=== PATIENT | female | born 1960 | race Caucasian/White ===

== ENCOUNTER → 2019-06-17 07:59 | Outpatient (CLI) | payer BC, SELFPAY | PROVIDERS: PCP Family Medicine; Visit Provider Family Medicine | DX: I10 Essential (primary) hypertension (principal); E66.09 Other obesity due to excess calories; I20.8 Other forms of angina pectoris | CPT/HCPCS: 93017 ==

== ENCOUNTER → 2020-01-03 14:07 | Outpatient (POV) | payer BC, SELFPAY | PROVIDERS: PCP Dermatology; Visit Provider Dermatology | DX: Z00.00 Encounter for general adult medical examination without abnormal findings (principal) ==

== ENCOUNTER → 2020-06-11 09:57 | Outpatient (CLI) | payer BC, SELFPAY ==
--- NOTE | 2020-06-11 10:02 | MM_ITS ---
PROCEDURE: MM DIG SCREENING MAMM BI W/CAD Digital Breast Tomosynthesis Included CLINICAL INDICATION: SCREENING There is no personal or family history of breast cancer. There has been a previous biopsy left breast for benign disease. COMPARISON: DMSB DIG MAMM-SCREEN LOBO from 04/12/2015 DMSB DIG MAMM-SCREEN LOBO from 05/28/2016 TECHNIQUE: Standard CC and MLO images and 3D Tomosynthesis was obtained. R2 CAD reviewed. FINDINGS: Scattered diffuse fibroglandular densities are seen throughout both breasts. There is a biopsy clip left breast along with a couple of benign-appearing calcifications. There are couple of microcalcifications associated irregular density upper-outer quadrant right breast highlighted by CAD but only definitely seen on the cc view. Recommend the patient return for spot compression magnification views and possibly ultrasound this proved to be a true lesion. There is a stable nodular density upper-outer quadrant right breast likely intramammary node. IMPRESSION: Fibrofatty parenchyma with possible new microcalcifications right breast BI-RAD Category: 0 Need Additional Imaging Evaluation FOLLOW-UP: IMM Immediate Follow-up Recommended (A letter has been sent to the patient regarding results of the study.) Dictated by: Dr. Anuj Kenyon MD 06/14/2020 08:[address] Anuj Kenyon MD in [place] 06/14/2020 08:33
== END ==
PROVIDERS: PCP Family Medicine; Visit Provider Nurse Practitioner
DX: Z12.31 Encounter for screening mammogram for malignant neoplasm of breast (principal)
CPT/HCPCS: 77063; 77067

== ENCOUNTER → 2020-07-10 14:17 | Outpatient (CLI) | payer BC, SELFPAY ==
--- NOTE | 2020-07-10 14:23 | MM_ITS ---
PROCEDURE: MM DIG MAMM DX UNILAT RT CAD Digital Breast Tomosynthesis Included CLINICAL INDICATION: ABN MAMM Calcifications highlighted by CAD COMPARISON: MG DMSB DIG MAMM-SCREEN LOBO from 05/28/2016 MG DMSB DIG MAMM-SCREEN LOBO W/CAD from 06/09/2017 MG MM DIG SCREENING MAMM BI W/CAD from 06/11/2020 TECHNIQUE: Standard CC and MLO images and 3D Tomosynthesis was obtained. R2 CAD reviewed. FINDINGS: Spot compression magnification views show a small cluster of round microcalcifications with smooth borders and no associated abnormal density. These have a benign appearance. No other abnormality is seen. IMPRESSION: Small cluster of benign-appearing microcalcifications as noted and recommend the patient continue with yearly mammography BI-RAD Category: 2 Benign Finding(s) FOLLOW-UP: 1YR 1 Year Follow-up (A letter has been sent to the patient regarding results of the study.) Dictated by: Dr. Anuj Kenyon MD 07/17/2020 09:28 Dr. Anuj Kenyon MD in [place] 07/17/2020 09:28
--- NOTE | 2020-07-10 14:23 | US_ITS ---
PROCEDURE: US BREAST RT COMPLETE CLINICAL INDICATION: ABN MAMM possible new microcalcifications COMPARISON: MG MM DIG MAMM DX UNILAT RT CAD from 07/10/2020 FINDINGS: Ultrasound survey of the breast in all 4 quadrants shows rather homogeneous echogenicity with no suspicious cystic or solid lesions seen and no findings to suggest architectural distortion. There is a normal appearing node in the axilla. IMPRESSION: Negative ultrasound right breast and suggest patient continue with yearly screening mammography Dictated by: Dr. Anuj Kenyon MD 07/17/2020 09:32 Dr. Anuj Kenyon MD in [place] 07/17/2020 09:32
== END ==
PROVIDERS: PCP Family Medicine; Visit Provider Nurse Practitioner
DX: R92.8 Other abnormal and inconclusive findings on diagnostic imaging of breast (principal)
CPT/HCPCS: 76641; 77061; 77065; G0279

== ENCOUNTER → 2021-07-16 10:05 | Outpatient (CLI) | payer BC, SELFPAY ==
--- NOTE | 2021-07-16 10:07 | MM_ITS ---
PROCEDURE: MM DIG SCREENING MAMM BI W/CAD Digital Breast Tomosynthesis Included CLINICAL INDICATION: SCREENING COMPARISON: MG DMSB DIG MAMM-SCREEN LOBO from 04/12/2015 MG DMSB DIG MAMM-SCREEN LOBO from 05/28/2016 MG DMSB DIG MAMM-SCREEN LOBO W/CAD from 06/09/2017 MG MM DIG SCREENING MAMM BI W/CAD from 06/11/2020 MG MM DIG MAMM DX UNILAT RT CAD from 07/10/2020 TECHNIQUE: Standard CC and MLO images and 3D Tomosynthesis was obtained. R2 CAD reviewed. FINDINGS: The breasts are almost entirely fatty. Right breast: Benign-appearing nodular density upper outer right breast which may represent a small lymph node at approximately 8 mm. Small cluster of calcifications in the outer aspect of the right breast. These may have slightly increased in number compared to the previous exam. Spot compression Mag views once again suggested with straight mL view. Asymmetric density is present in the deep central aspect of the right breast possibly due to fibroglandular tissue. Spot compression views suggested. The left breast has an unremarkable appearance. A clip is present in the upper aspect of the left breast at 1 o'clock. There benign-appearing calcifications on the left. IMPRESSION: Additional imaging suggested of the right breast of the slightly increasing calcifications and asymmetric density. Unremarkable left breast BI-RAD Category: 0 Need Additional Imaging Evaluation FOLLOW-UP: IMM Immediate Follow-up Recommended (A letter has been sent to the patient regarding results of the study.) Dictated by: Nash Baires MD 07/29/2021 10:41 Nash Baires MD in [place] 07/29/2021 10:41
== END ==
PROVIDERS: PCP Family Medicine; Visit Provider Family Medicine
DX: Z12.31 Encounter for screening mammogram for malignant neoplasm of breast (principal)
CPT/HCPCS: 77063; 77067

== ENCOUNTER → 2021-07-25 15:02 | Outpatient (CLI) | payer BC, SELFPAY | PROVIDERS: PCP Family Medicine; Visit Provider Family Medicine | DX: R92.8 Other abnormal and inconclusive findings on diagnostic imaging of breast (principal) ==

== ENCOUNTER → 2021-08-13 14:10 | Outpatient (CLI) | payer BC, SELFPAY ==
--- NOTE | 2021-08-13 14:13 | MM_ITS ---
PROCEDURE: MM DIG MAMM DX UNILAT RT CAD Digital Breast Tomosynthesis Included CLINICAL INDICATION: ABN MAMM COMPARISON: MG DMSB DIG MAMM-SCREEN LOBO W/CAD from 06/09/2017 MG MM DIG SCREENING MAMM BI W/CAD from 06/11/2020 US US BREAST RT COMPLETE from 07/10/2020 MG MM DIG MAMM DX UNILAT RT CAD from 07/10/2020 MG MM DIG SCREENING MAMM BI W/CAD from 07/16/2021 US US BREAST RT COMPLETE from 08/13/2021 TECHNIQUE: Diagnostic mammogram and right breast ultrasound. FINDINGS: The asymmetry in the posterior aspect of the right breast is approximately 15 cm deep to the nipple. This region appears to compress out as fibroglandular tissue on the focal spot view. The cluster of calcifications in the 9 o'clock region of the right breast do appear to have increased in number with some pleomorphism. Biopsy suggested Right breast ultrasound complete with axilla: No suspicious solid nodules evident. No cyst identified. IMPRESSION: Slight increase in the calcifications in the lateral right breast central 1/3 at 9 o'clock. Stereotactic biopsy suggested. The nodular density in the deep posterior central right breast appears to compress out as fibroglandular tissue. BI-RAD Category: 4 Suspicious Abnormality-Biopsy Considered FOLLOW-UP: BIO Biopsy Recommended (A letter has been sent to the patient regarding results of the study.) Dictated by: Nash Baires MD 08/21/2021 12:10 Nash Baires MD in [place] 08/21/2021 12:10
== END ==
PROVIDERS: PCP Family Medicine; Visit Provider Family Medicine
DX: R92.8 Other abnormal and inconclusive findings on diagnostic imaging of breast (principal)
CPT/HCPCS: 76641; 77061; 77065; G0279

== ENCOUNTER → 2021-09-03 13:03 | Outpatient (CLI) | payer BC, SELFPAY ==
--- NOTE | 2021-09-03 13:09 | MM_ITS ---
PROCEDURE: MM STEREOTACTIC LOC RT MM CLIP PLACEMENT MM SURGICAL SPECIMEN CLINICAL INDICATION: BREAST CALCIFICATIONS Suspicious calcifications at 9 o'clock TECHNIQUE: Informed consent was performed and time-out procedure performed. The patient was given 1 mg of Xanax, Lortab 5 mg, and analgesia and minor sedation. The patient was placed on the stereotactic table and the 9 o'clock calcifications right breast were localized in the most appropriate projection. The breast was prepped in the routine manner, with sterile prep and the overlying skin anesthetized. A 3 to 4 mm skin incision was performed and the 8 gauge sorus vacuum-assisted core biopsy needle was advanced to the region of the calcification. Pre- and post fire images were obtained. After adequate positioning relative to the calcifications was ensured, multiple biopsies were obtained in the region of the calcifications specifically. The core biopsies obtained were sent for specimen mammography. After the calcifications were indeed identified on the specimen mammogram, the procedure was terminated. The patient tolerated the procedure well without complications. Specimen was sent for pathologic analysis. A tiny titanium nonferromagnetic MicroMark was positioned through the mammotome needle into the biopsy site. Pathology: Focal stromal fibrosis/hilum is a izquierdo with associated benign microcalcifications. No atypical ductal hyperplasia in situ or invasive carcinoma IMPRESSION: 1. Successful stereotactic vacuum-assisted core biopsy of the right breast 9 o'clock calcifications. 2. Successful placement of a titanium metal MicroMark. 3. Pathologic analysis shows benign findings.. 4. No noted complications. SPECIMEN RADIOGRAPH: The mammographically evident calcifications from the prior study are currently evident within the Alfredo dish and within the specimens obtained during mammotome procedure. This is considered an adequate specimen and the procedure was terminated. IMPRESSION: Successful removal of described breast calcifications. BREAST MAMMOGRAM: Post clip placement images Compared to the prior study, the previously noted calcification have been removed. A small MicroMark clip was inserted into the region of the calcifications. There is evidence of soft tissue changes in the region of the biopsy was soft tissue gas and edema. 5. Adequate placement of the MicroMark clip postbiopsy. 6. Postbiopsy changes within the breast. Dictated by: Nash Baires MD 09/06/2021 19:26 Nash Baires MD in [place] 09/06/2021 19:26
== END ==
PROVIDERS: PCP Family Medicine; Visit Provider Family Medicine
DX: R92.1 Mammographic calcification found on diagnostic imaging of breast (principal)
CPT/HCPCS: 19081; 76098; 77065

== ENCOUNTER 2022-07-15 17:38 | Emergency (ER) | payer BC, SELFPAY ==
[2022-07-15 18:00] VITALS: BP 151/75; PULSE 67; RESP 17; TEMP 36.7; O2SAT 98; BMI 32.8
--- NOTE | 2022-07-15 18:17 | EXP.UTC ---
Discharge Plan Referrals Follow up/Referrals: Chapin Lan MD [Primary Care Provider] - See instructions Discharge ED Provider: Adis Espinoza [facility] [place] General Stated complaint: nausea, poss HBP Mode of Arrival: Ambulatory Source of Information: Patient Limitations: No Limitations Time Seen by Provider: 07/15/22 18:10 Description of Symptoms (Recalled from Triage Doc. by RN): PATIENT C/O FATIGUE AND HEADACHE SINCE THIS MORNING HEENT Symptoms (Recalled from RN notes): Yes Resp Symptoms (Recalled from RN notes): No Skin Symptoms (Recalled from RN notes): No MS Symptoms (Recalled from RN notes): No Functional Status (Recalled from RN notes): WNL History of Present Illness Provider Complaint: Patient states that she hasnt felt well on and off for about 2 weeks States that on Thursday she tried to give blood and they wouldnt let her told her that her heart was missing too many beats States that she has watched her blood pressure all weekend and on Thursday it said her heart rate was in the 40's and then was 49 States that yesterday she felt good and helped her do some work but today States that she has continued to not feel well on and off and today she was feeling fatigued, had a little headache and just dont feel right so she came in Related Data Allergies Allergy/AdvReac Type Severity Reaction Status Date / Time No Known Allergies Allergy Verified 07/15/22 18:12 Worker's Comp Is this a Worker's Comp case?: No [facility] Medical History (Updated 07/15/22 @ 18:12 by Cesia Gallardo RN) Hypertension Social History (Updated 07/15/22 @ 18:12 by Cesia Gallardo RN) Smoking Status: Unknown if ever smoked alcohol intake: never current occupational status: other ROS Obtained: Yes All systems reviewed & no additional complaints except as documented and Yes Systems reviewed as appropriate & no additional complaints except as documented Constitutional Constitutional: Reports system reviewed and no additional complaints, except as documented, Reports as per HPI, Reports fatigue and Reports headache(s) ENT Ears, Nose, Mouth, and Throat: Reports system reviewed and no additional complaints, except as documented, Reports as per HPI and Reports headache(s) Cardiovascular Cardiovascular: Reports system reviewed and no additional complaints, except as documented, Reports as per HPI and Denies chest pain Respiratory Respiratory: Reports system reviewed and no additional complaints, except as documented and Reports as per HPI Neurologic Neurologic: Reports headache(s) Endocrine Endocrine: Reports fatigue Allergic/Immunologic Comments: Patient reports hasnt felt right on and off for 2 weeks Physical Exam General General appearance: alert and in no apparent distress Respiratory Respiratory exam: Present normal lung sounds bilaterally; Absent respiratory distress Cardiovascular Cardiovascular exam: Present irregular rhythm Neurological Exam Neurological exam: Present alert and oriented X3 Medical Decision Making Hi Inquiry Pt receiving controlled substance: No Hi was queried for this patient: No Vital Signs: 07/15/22 18:00 Temperature 98.1 F Temperature Source Oral Pulse Rate [Left Brachial] 67 Respiratory Rate 17 Blood Pressure [Left Arm] 151/75 H Blood Pressure Mean [Left Arm] 100 Blood Pressure Source [Left Arm] Automatic Cuff Blood Pressure Position [Left Arm] Sitting 02 Sat by Pulse Oximetry 98 Oxygen Delivery Method Room Air Medical Decision Narrative: Patient denies hx of irregular HR State states that for the last 2 weeks she has just not felt right States that she has been having fatigue and headaches and just not felt well States that they wouldnt let her donate blood over the weekend because they said her heart was missing too many beats states that he blood pressure has been up Due to patient symptoms and upon examination patient HR appeared irregular discussed with donal
[2022-07-15 18:20] VITALS: BP 133/87; PULSE 63; RESP 18; TEMP 36.8; O2SAT 100; BMI 34.8
[2022-07-15 18:29] VITALS: BP 164/72; PULSE 65; O2SAT 100
--- NOTE | 2022-07-15 18:35 | HMH.EDGENADL ---
Discharge Plan Disposition Patient Disposition: Home, Self-Care Condition: Good Chief Complaint: Arrhythmia/Palpitations Referrals Follow up/Referrals: Chapin Lan MD [Primary Care Provider] - See instructions Clayton Jovel MD [Staff Physician] - See instructions (See tomorrow in the office at 10:30 AM) Activity Restrictions/Add. Instructions Additional Instructions/Restrictions: See Dr. Jovel in his office tomorrow at 10:30 AM. Clinical Impressions Clinical Impression: Frequent unifocal premature ventricular contractions Discharge ED Provider: Adis Espinoza General Adult HPI General Chief complaint: Arrhythmia/Palpitations Stated complaint: nausea, poss HBP Time Seen by Provider: 07/15/22 18:50 Mode of Arrival: Ambulatory Source of Information: Patient Limitations: No Limitations Description of Symptoms (Recalled from ER Triage Doc. by RN): PATIENT C/O FATIGUE AND HEADACHE SINCE THIS MORNING History of Present Illness HPI narrative: The patient is sent from the urgent treatment center. She says that she has had intermittent feelings of fatigue for the past couple of weeks. No chest pain. Occasionally feels like she has to take a deep gasping breath, but otherwise no shortness of breath. No palpitations. She says that she tried to donate blood on Thursday but was told she could not because her heart was skipping too many beats. She says that she checked her blood pressure a couple of times in the past couple of days and her blood pressure was good, 120s over 60s, but both times her heart rate registered in the 40s. This worried her and she decided to come to the emergency department. She has a prior history of mitral valve prolapse and hypertension. She has seen Dr. Jovel 12 years ago, but not since. She is not on any new medications. She says that she takes Tenormin and lisinopril/hctz for blood pressure. She has never been a smoker. No other chronic medical problems. Related Data Allergies Allergy/AdvReac Type Severity Reaction Status Date / Time No Known Allergies Allergy Verified 07/15/22 18:12 [facility] Medical History (Updated 07/15/22 @ 20:30 by Adis Espinoza MD) Hypertension Social History (Updated 07/15/22 @ 18:28 by Estefanía Yancey APRN) Smoking Status: Unknown if ever smoked alcohol intake: never current occupational status: other Travel in the last 8 weeks: None ROS Obtained: Yes Systems reviewed as appropriate & no additional complaints except as documented Constitutional Constitutional: Denies fever(s) ENT Ears, Nose, Mouth, and Throat: Denies nasal discharge and Denies sore throat Cardiovascular Cardiovascular: Denies chest pain and Denies palpitations Respiratory Respiratory: Reports as per HPI Gastrointestinal Gastrointestingal: Denies abdominal pain, diarrhea or vomiting Endocrine Endocrine: Denies palpitations Physical Exam General General appearance: alert and in no apparent distress Head Head exam: atraumatic and normocephalic Eye Eye exam: Present normal appearance and EOMI ENT ENT exam: Present mucous membranes moist Neck Neck exam: Present normal inspection and trachea midline; Absent lymphadenopathy or thyromegaly Chest Chest inspection: Present normal inspection and symmetric chest wall rise Respiratory Respiratory exam: Present normal lung sounds bilaterally; Absent respiratory distress Cardiovascular Cardiovascular exam: Present regular rate, irregular rhythm (Frequent extrasystoles) and normal heart sounds Abdominal Exam Abdominal exam: Present soft; Absent distention, tenderness, guarding, rebound or rigidity Extremities Exam Extremities exam: Present normal inspection; Absent edema or calf tenderness Neurological Exam Neurological exam: Present alert and oriented X3 Psychiatric Psychiatric exam: Present normal affect and normal mood Skin Skin exam: Present warm and dry Medical Decision Making Hi Inquiry Pt receiving c
--- NOTE | 2022-07-15 18:56 | PC.NURSE ---
1855 ED MD AT BEDSIDE TO EVALUATE PT
[2022-07-15 19:02] LABS: Basophils # 0.1 K/mm3 (0-0.2); Basophils % 1.1 % (0.1-2.0); Eosinophils # 0.2 K/mm3 (0.0-0.4); Eosinophils % 2.8 % (0.1-12.0); Hematocrit 44.1 % (37.0-47.0); Hemoglobin 14.1 g/dL (12.2-16.2); Lymphocytes # 2.5 K/mm3 (0.7-4.5); Lymphocytes % 42.9 % (10-50); Mean Corpuscular Hemoglobin 30.1 pg (27.0-31.2); Mean Corpuscular Volume 93.9 fl (81-99); Mean Platelet Volume 7.6 fl (7.4-10.4); Monocytes # 0.4 K/mm3 (0.1-1.0); Monocytes % 6.5 % (1.7-9.3); Neutrophils # 2.8 K/mm3 (1.8-7.8); Neutrophils % 46.7 % (37.0-80.0); Platelet Count 267 K/mm3 (142-424); Red Blood Count 4.69 M/mm3 (4.20-5.40); Red Cell Distribution Width 13.3 % (11.5-17.5); White Blood Count 5.9 K/mm3 (4.8-10.8)
[2022-07-15 19:18] LABS: Alanine Aminotransferase 47 U/L (12-78); Albumin Level 4.4 g/dl (3.5-5.0); Albumin/Globulin Ratio 1.6 (1.1-1.8); Alkaline Phosphatase 117 U/L (38-126); Anion Gap 10.1 mEq/L (5-15); Aspartate Amino Transferase 36 U/L (14-36); Bilirubin,Total 0.9 mg/dl (0.2-1.3); Blood Urea Nitrogen 19 mg/dl (7-17); Calcium 9.9 mg/dl (8.4-10.2); Carbon Dioxide 27 mmol/L (22.0-30.0); Chloride 107 mmol/L (98-107); Creatinine Clearance Estimated 88 mL/min (50-200); Estimated Glomerular Filt Rate 57 ml/min (>60); GFR (African American) 69 ML/MIN (>60); Globulin 2.8 g/dL (1.3-3.2); Glucose 125 mg/dl (74-100); Potassium 4.1 mmoL/L (3.5-5.1); Sodium 140 mmol/L (136-145); Total Protein,Serum 7.2 g/dl (6.3-8.2)
[2022-07-15 19:30] LABS: Magnesium 1.9 mg/dl (1.6-2.3)
[2022-07-15 19:30] LABS: Troponin I < 0.01 ng/ml (0.00-0.034)
[2022-07-15 19:47] LABS: Free Thyroxine Index 2.8 ug/dL (5.93-13.13); T4 (Thyroxine) 8.9 ug/dl (5.53-11.0); Triiodothryronine (T3) Uptake 31 % (23.5-40.5)
[2022-07-15 20:36] VITALS: BP 145/87; PULSE 64; RESP 18; TEMP 36.8; O2SAT 98
[2022-07-15 22:07] LABS: Thyroid Stimulating Hormone 2.37 uIU/mL (0.465-4.68)
--- NOTE | 2022-07-16 18:57 | ECG_ITS ---
APPROVED REPORT Exam: Resting ECG HR:60 bpm ECG Measurements Heart Rate 60 AXES IA 192 P 71 QRSd 90 QRS 63 QT 433 T 49 QTc 433 Conclusion SINUS RHYTHM WITH OCCASIONAL VENTRICULAR PREMATURE COMPLEXES BORDERLINE ECG UNCONFIRMED REPORT Electronically signed by : Chapin Paulson MD 07/17/2022 11:24:12
== END 2022-07-15 20:37 | disposition home or self-care (01) ==
LOC: UTC 17:42 → ER 18:20
PROVIDERS: Emergency Provider Emergency Medicine; PCP Family Medicine
DX: I49.3 Ventricular premature depolarization (principal); Z79.899 Other long term (current) drug therapy
CPT/HCPCS: 80053; 83735; 84436; 84443; 84479; 84484; 85025; 93005; 99283

== ENCOUNTER → 2022-07-16 15:55 | Outpatient (CLI) | payer BC, SELFPAY | PROVIDERS: PCP Family Medicine; Visit Provider Physician Assistant | DX: R94.31 Abnormal electrocardiogram [ECG] [EKG] (principal); I10 Essential (primary) hypertension; I49.3 Ventricular premature depolarization | CPT/HCPCS: 93225; 93226 ==

== ENCOUNTER → 2022-07-18 14:27 | Outpatient (CLI) | payer BC, SELFPAY ==
--- NOTE | 2022-07-18 14:29 | CA_ITS ---
APPROVED REPORT EXAM: Comprehensive 2D, Doppler, and color-flow Echocardiogram Mine Safety Director: Kiah Gaffney RT(R) Ht: 5 ft 4 in Wt: 200lbs BSA: 1.96 BP: 152/83 mmHg Indications: HTN, PVC's, abn EKG. 2D Dimensions LVOT 1.99 cm (M/F) 1.5-2.5 LVEF (Bailey's) 55.30 % F: 54 - 74 LV Volume 84.20 mL F: 46 - 106 LV Volume Index 43.17 mL/m2 F: 29 - 61 LA Volume 13.70 mL LA Volume Index 7.02 mL/m2 (M/F) 16-34 M-Mode Dimensions RVDd 2.17 cm (0.9-2.6) LA Diam 3.30 cm (1.9-4.0) LVDd 4.84 cm (3.5-5.7) Ao Diam 2.55 cm (2.0-3.7) LVDs 3.59 cm (3.5-5.7) IVSd 0.61 cm (0.6-1.1) PWd 0.57 cm (0.6-1.1) EF (Teich) 50.60% FS 25.80% EDV (Teich) 109.60 mL ESV (Teich) 54.10 mL LV Diastology E Decel Time 263.00 (160-240 msec) E/A Ratio 0.98 MED E' 7.90 (< 7 cm/sec) E'/MED E' Ratio 9.23 (>14) LAT E' 11.20 (<10 cm/sec) E/LAT E' Ratio 6.51 (>14) Mitral Valve MV A Velocity 75.00 (40-130 cm/s) E/A Ratio 0.98 MV Decel. Time 263.00 (160-240 ms) Tricuspid Valve TR P. Velocity 202.00 cm/s RAP Estimate 10.00 mmHg RVSP 26.40 mmHg Left Ventricle Left atrium is normal size left ventricle is normal size there is no concentric left ventricular hypertrophy, estimated ejection fraction 55% with no regional wall motion abnormality diastolic parameters are within normal range. Right Ventricle Right atrium and right ventricle are normal size and contractility. Aortic Valve Aortic valve is minimally thickened and fibrosed there is no aortic stenosis or aortic insufficiency. Mitral Valve Mitral valve is grossly normal, there is trace mitral regurgitation. Tricuspid Valve Tricuspid valve grossly normal, there is trace tricuspid regurgitation, tricuspid regurgitation jet velocity is inadequate for calculation of the right ventricular systolic pressure. Pulmonic Valve Pulmonic valve is poorly visualized. Great Vessels Aortic root is normal size. Inferior vena cava is poorly visualized. Pericardium No significant pericardial effusion noted. Conclusion 1. Normal left ventricular size, preserved left ventricular systolic function, estimated ejection fraction 55% with no regional wall motion abnormality, diastolic parameters are within normal range. 2. Trace mitral and tricuspid regurgitation. 3. No significant pericardial effusion. 4. Inferior vena cava is poorly visualized. Electronically signed by : Walter Carr MD 07/20/2022 17:21:57
== END ==
PROVIDERS: PCP Family Medicine; Visit Provider Internal Medicine
DX: R94.31 Abnormal electrocardiogram [ECG] [EKG] (principal); I49.3 Ventricular premature depolarization; I10 Essential (primary) hypertension
CPT/HCPCS: 93306

== ENCOUNTER → 2022-07-29 11:03 | Outpatient (CLI) | payer BC, SELFPAY ==
--- NOTE | 2022-07-29 11:04 | NM_ITS ---
APPROVED REPORT Exam: Nuclear Stress Test Indication: Abnormal EKG, Fatigue, HTN, Family history Patient Location: Outpatient Stress Tech: Giselle Shen [place] Tech:Holly Cramer, ARRT, RT (R)(N) Ht: 5 ft 4 in Wt: 200 lbs Bra Size: 40DD HR: 66 bpm BP: 137/89 mmHg BSA: 1.96 m2 TID: 1.14 BMI: 34.3 History: Abnormal EKG, Fatigue, HTN, Family history Procedure: Patient exercised on Paddy protocol 8:15 minutes and sec, resting heart rate 66 bpm, resting blood pressure 137/89 mmHg, with exercise maximum heart rate achived was 123 bpm which is 76 % of the maximum predicted heart rate and blood pressure was 194/72 mmHg. Test was stopped due to SOB. Patient denied any complaint of chest pain. Patient has good exercise capacity, achieved 10.1 METs of workload on treadmill, the blood pressure response to exercise was Adequate. Electrocardiogram Resting electrocardiogram shows sinus rhythm, with exercise there is less than 1.[address] segment depression noted from the baseline EKG, the EKG portion of the exercise Myoview was nondiagnostic as patient did not achieve the target heart rate. Cardiac Stress and Resting SPECT Images: Cardiac Stress and Resting SPECT images were obtained using technetium 99m Myoview 32.5 mCi stress and 10.44 mCi at rest. Gated SPECT for analysis of segmental wall motion and calculation of the ejection fraction was present. Prone images were also obtained. Cardiac stress and rest SPECT may show uniform myocardial activity without segmental perfusion abnormality, computer derived ejection fraction is 65% with no regional wall motion abnormality, right ventricle is normal size and contractility. Conclusion: 1. The EKG portion of the exercise Myoview was nondiagnostic as patient did not achieve the target heart rate, patient has good exercise capacity achieved 10.1 METs of workload on treadmill, the blood pressure response to exercise was adequate, there was no exercise-induced chest discomfort. 2. No scintigraphic evidence of reversible ischemia seen at this level of exercise, computer derived ejection fraction is 65% with no regional wall motion abnormality, right ventricle is normal size and contractility. Electronically signed by : Walter Carr MD 07/30/2022 05:52:43
--- NOTE | 2022-07-29 12:45 | HMH.ITSHM ---
Current Home Medications as stated by this patient Shelley Mccracken or community health representative. []LISINOPRIL ATENOLOL
--- NOTE | 2022-07-29 13:34 | CA_ITS ---
APPROVED REPORT Exam: Exercise Treadmill Technologist: Giselle Montanez, Ht: 5 ft 4 in Wt: 201 lbs BSA: 1.96 m2 HR: 62 bpm BP: 147/96 mmHg Indications: PVCs Medical History Medications: Atenolol,,,,, Lisinopril-HCTZ,,,,, Stress Test Details Test: Paddy HR Resting HR: 66 bpm Max Heart Rate (APMHR): 161.277074 bpm Max HR Achieved: 123 bpm Target HR (85% APMHR): 136.182562 bpm % of APMHR: 76.40 Recovery HR: 76 bpm BP Resting BP: 137/89 mmHg Max BP: 194/72 mmHg Recovery BP: 135.0/63.0 mmHg ECG Resting ECG: NSR, frequent uniform PVCs Clinical Exercise duration: 08:15 min Highest Stage Achieved: III Exercise capacity: 10.1 METs Stress ECG Conclusion Exercised 8:15 into stage III of Paddy Protocol. Max HR: 123 % of PM: 76% Max BP: 194/72 METs: 10.1 Test stopped due to: SOA Symptoms: SOA. No CP. Arrhythmias/Ectopy: Frequent unifocal PVCs, sometimes in a bigeminal pattern/ Frequency of PVCs decreases at higher heart rates. ST-T Changes: 0.5 to 1mm of horizontal [address] depression inferiorly & anterolaterally, most notable in recovery. Conclusion: Equivocal EKG changes to the HR achieved (76% of PM). Blunted HR response on beta-vicky. Myoview images reported separately. Test Summary RECOVERY 07:48 0.0 0.0 81 . 135/ 63 . . REST . . . . . . . Standing REST 04:13 0.0 0.0 66 . 137/ 89 . . Stage 1 01:00 10.0 1.7 78 . . . . Stage 1 02:00 10.0 1.7 94 . . . . Stage 1 03:00 10.0 1.7 96 . 174/ 74 . . Stage 2 01:00 12.0 2.5 105 . . . . Stage 2 02:00 12.0 2.5 110 . . . . Stage 2 03:00 12.0 2.5 109 . 194/ 72 . . Stage 3 01:00 14.0 3.4 115 . . . . Stage 3 02:00 14.0 3.4 120 . . . . Stage 3 02:15 14.0 3.4 121 . . . Stop exercise at 08:15 RECOVERY 01:00 0.0 0.0 112 . . . . RECOVERY 02:00 0.0 0.0 95 . . . . RECOVERY 03:00 0.0 0.0 87 . 182/ 73 . . RECOVERY 04:00 0.0 0.0 84 . 172/ 67 . . RECOVERY 05:00 0.0 0.0 80 . 172/ 67 . . RECOVERY 06:00 0.0 0.0 80 . 172/ 67 . . RECOVERY 07:00 0.0 0.0 77 . 112/ 64 . . RECOVERY 07:48 0.0 0.0 81 . 135/ 63 . . Electronically signed by : Walter Carr MD 07/30/2022 05:49:50
== END ==
PROVIDERS: PCP Family Medicine; Visit Provider Nurse Practitioner Family
DX: R94.31 Abnormal electrocardiogram [ECG] [EKG] (principal); I49.3 Ventricular premature depolarization; I10 Essential (primary) hypertension; R53.83 Other fatigue; Z82.49 Family history of ischemic heart disease and other diseases of the circulatory system
CPT/HCPCS: 78452; 93017; A9502

== ENCOUNTER → 2022-08-25 09:01 | Outpatient (CLI) | payer BC, SELFPAY ==
[2022-08-25 11:31] LABS: Basophils # 0.1 K/mm3 (0-0.2); Basophils % 1.2 % (0.1-2.0); Eosinophils # 0.1 K/mm3 (0.0-0.4); Eosinophils % 2.2 % (0.1-12.0); Hematocrit 45.2 % (37.0-47.0); Hemoglobin 14.5 g/dL (12.2-16.2); Lymphocytes # 2.3 K/mm3 (0.7-4.5); Lymphocytes % 43.9 % (10-50); Mean Corpuscular HGB Conc 32.1 g/dL (31.8-35.4); Mean Corpuscular Hemoglobin 30.4 pg (27.0-31.2); Mean Corpuscular Volume 94.6 fl (81-99); Mean Platelet Volume 8.7 fl (7.4-10.4); Monocytes # 0.3 K/mm3 (0.1-1.0); Monocytes % 6.5 % (1.7-9.3); Neutrophils # 2.4 K/mm3 (1.8-7.8); Neutrophils % 46.2 % (37.0-80.0); Platelet Count 262 K/mm3 (142-424); Red Blood Count 4.78 M/mm3 (4.20-5.40); Red Cell Distribution Width 13.3 % (11.5-17.5); White Blood Count 5.2 K/mm3 (4.8-10.8)
[2022-08-25 11:58] LABS: Chloride 106 mmol/L (98-107); Potassium 4.4 mmoL/L (3.5-5.1); Sodium 140 mmol/L (136-145)
[2022-08-25 12:01] LABS: Alanine Aminotransferase 38 U/L (12-78); Albumin Level 4.5 g/dl (3.5-5.0); Alkaline Phosphatase 88 U/L (38-126); Anion Gap 16.4 mEq/L (5-15); Aspartate Amino Transferase 37 U/L (14-36); Bilirubin,Direct 0.1 mg/dl (0.0-0.4); Bilirubin,Indirect 0.9 mg/dL (0.0-0.9); Bilirubin,Unconjugated 0.9 mg/dL (0.0-1.1); Blood Urea Nitrogen 20 mg/dl (7-17); Calcium 9.5 mg/dl (8.4-10.2); Carbon Dioxide 22 mmol/L (22.0-30.0); Cholesterol 204 mg/dl (140-200); Estimated Glomerular Filt Rate 57 ml/min (>60); GFR (African American) 69 ML/MIN (>60); Glucose 109 mg/dl (74-100); Triglycerides 104 mg/dl (30-150); VLDL Cholesterol 21 mg/dL (0-40)
[2022-08-25 12:02] LABS: HDL Cholesterol 68 mg/dl (40-60)
== END ==
PROVIDERS: PCP Family Medicine; Visit Provider Physician Assistant
DX: R42 Dizziness and giddiness (principal); I49.3 Ventricular premature depolarization; R00.1 Bradycardia, unspecified; I10 Essential (primary) hypertension; R53.83 Other fatigue; Z82.49 Family history of ischemic heart disease and other diseases of the circulatory system; I63.9 Cerebral infarction, unspecified
CPT/HCPCS: 36415; 80048; 80061; 80076; 85025

== ENCOUNTER 2022-08-26 08:18 | Day surgery (SDC) | payer BC, SELFPAY ==
[2022-08-26] VITALS (10 sets, daily range): BP systolic 100–172; BP diastolic 57–90; PULSE 49–69; RESP 16–18; O2SAT 96–99; BMI 34.3
--- NOTE | 2022-08-26 07:06 | IR_ITS ---
APPROVED REPORT Patient Location: Outpatient Spotter: TOMÁS Rader RT (R) PROCEDURES Left heart catheterization Left ventriculogram Selective coronary angiogram INDICATION Recalcitrant angina pectoris Informed consent was obtained prior to the procedure. COMPLICATIONS None Estimated Blood Loss: Less than 10 mls TECHNIQUE One percent lidocaine used to anesthetize the right anterior aspect of the wrist. The right radial artery was accessed via the Seldinger technique. A 6 [place] Helen[place] sheath was placed in the right radial artery. 2.5 mg of verapamil, 800 mcg of nitroglycerin, 1mg Lidocaine and 5000 U Heparin were given through the arterial sheath. The papa catheter was also used to perform left heart catheterization, left ventriculogram and selective coronary angiogram. At the end of the procedure the sheath was removed good hemostasis was achieved using Traclet band, patient was transferred to the postop holding area in stable condition. ANGIOGRAPHIC RESULTS The left main artery Normal The left anterior descending artery Normal The circumflex artery Codominant normal The right coronary artery Codominant normal The LAMBERT ventriculogram reveals Normal 65% The left ventricular end-diastolic pressure 15 mmHg IMPRESSION Normal coronary arteries Normal ejection fraction Borderline LVEDP PLAN 1. Evaluation of noncardiac chest pain versus empiric treatment for endothelial dysfunction Electronically signed by : Clayton Jovel MD 08/26/2022 12:11:41
== END 2022-08-26 14:53 | disposition home or self-care (01) ==
PROVIDERS: PCP Family Medicine; Visit Provider Internal Medicine
DX: I25.118 Atherosclerotic heart disease of native coronary artery with other forms of angina pectoris (principal); I10 Essential (primary) hypertension; I49.3 Ventricular premature depolarization; R00.1 Bradycardia, unspecified; R42 Dizziness and giddiness; R53.83 Other fatigue; Z82.49 Family history of ischemic heart disease and other diseases of the circulatory system; R07.89 Other chest pain
CPT/HCPCS: 93458; 99152; C1769; J1644; Q9967

== ENCOUNTER → 2022-12-09 13:43 | Outpatient (CLI) | payer BC, SELFPAY | PROVIDERS: PCP Family Medicine; Visit Provider Physician Assistant | DX: I49.3 Ventricular premature depolarization (principal) | CPT/HCPCS: 93225 ==

== ENCOUNTER 2022-12-17 22:11 | Emergency (ER) | payer BC, SELFPAY ==
--- NOTE | 2022-12-17 22:22 | ECG_ITS ---
APPROVED REPORT Exam: Resting ECG HR:80 bpm ECG Measurements Heart Rate 80 AXES LA 200 P 77 QRSd 83 QRS 67 QT 388 T 55 QTc 424 Conclusion SINUS RHYTHM WITH FREQUENT VENTRICULAR PREMATURE COMPLEXES ABNORMAL RHYTHM ECG UNCONFIRMED REPORT Electronically signed by : Chapin Paulson MD 12/18/2022 21:51:24
[2022-12-17 22:32] VITALS: BP 143/73; PULSE 69; RESP 18; TEMP 36.6; O2SAT 99; BMI 34.3
[2022-12-17 22:36] VITALS: BP 143/73; PULSE 67; RESP 24; O2SAT 98
--- NOTE | 2022-12-17 22:40 | XR_ITS ---
PROCEDURE INFORMATION: Exam: XR Chest Exam date and time: 12/17/2022 10:59 PM Age: 62 years old Clinical indication: Pain; Chest pressure; Patient HX: PT states she thinks she had a reaction to new medicine TECHNIQUE: Imaging protocol: Radiologic exam of the chest. Views: 2 views. COMPARISON: No relevant prior studies available. FINDINGS: Lungs: Unremarkable. No consolidation. Pleural spaces: Unremarkable. No pleural effusion. No pneumothorax. Heart/Mediastinum: Unremarkable. No cardiomegaly. Bones/joints: Unremarkable. IMPRESSION: No acute findings.
[2022-12-17 22:52] LABS: Blood Urea Nitrogen 19 mg/dl (7-17); Calcium 9.9 mg/dl (8.4-10.2); Carbon Dioxide 27 mmol/L (22.0-30.0); Chloride 102 mmol/L (98-107); Creatinine Clearance Estimated 78 mL/min (50-200); Estimated Glomerular Filt Rate 51 ml/min (>60); GFR (African American) 61 ML/MIN (>60); Glucose 175 mg/dl (74-100); Magnesium 2.1 mg/dl (1.6-2.3); Sodium 137 mmol/L (136-145)
[2022-12-17 22:59] LABS: Basophils # 0.1 K/mm3 (0-0.2); Basophils % 1.9 % (0.1-2.0); Eosinophils # 0.2 K/mm3 (0.0-0.4); Eosinophils % 2.2 % (0.1-12.0); Hematocrit 48.6 % (37.0-47.0); Hemoglobin 15.8 g/dL (12.2-16.2); Lymphocytes # 3.5 K/mm3 (0.7-4.5); Lymphocytes % 45.3 % (10-50); Mean Corpuscular HGB Conc 32.5 g/dL (31.8-35.4); Mean Corpuscular Volume 92.4 fl (81-99); Mean Platelet Volume 7.6 fl (7.4-10.4); Monocytes # 0.5 K/mm3 (0.1-1.0); Neutrophils # 3.4 K/mm3 (1.8-7.8); Neutrophils % 44.7 % (37.0-80.0); Platelet Count 292 K/mm3 (142-424); Red Blood Count 5.26 M/mm3 (4.20-5.40); Red Cell Distribution Width 13.3 % (11.5-17.5); White Blood Count 7.6 K/mm3 (4.8-10.8)
[2022-12-17 23:00] VITALS: BP 104/49; PULSE 67; RESP 13; O2SAT 99
[2022-12-17 23:05] LABS: Troponin I < 0.01 ng/ml (0.00-0.034)
[2022-12-17 23:30] VITALS: BP 127/63; PULSE 67; O2SAT 98
--- NOTE | 2022-12-18 00:20 | HMH.EDCP ---
Discharge Plan Disposition Patient Disposition: Home, Self-Care Chief Complaint: Chest Pain Prescriptions Prescriptions: No Action aspirin 81 mg tablet,delayed release (DR/EC) 81 mg PO DAILY atenolol 100 mg tablet 50 mg PO DAILY Label Comments: TAKE 1 TABLET BY MOUTH ONCE DAILY diltiazem HCl 180 mg capsule,extended release 24hr 180 mg PO DAILY Referrals Follow up/Referrals: Chapin Lan MD [Primary Care Provider] - See instructions Clinical Impressions Clinical Impression: PVC (premature ventricular contraction), Adverse drug reaction Instructions Patient Instructions: DI for Atypical Chest Pain Discharge ED Provider: Veena (ED)Panchito Chest Pain HPI General Chief Complaint: Chest Pain Stated Complaint: possible reaction to medication Time Seen by Provider: 12/17/22 23:00 Mode of Arrival: Ambulatory Source of Information: Patient, Spouse and Medical Record Limitations: No Limitations Description of Symptoms (Recalled from ER Triage Doc. by RN): Patient arrived to er with c/o an allergic reaction to cardizem that she began with cardiology on the . Pt states she has been having face tingling periodically since Thursday, but it typically occurs after taking her diltiazem, states that tingling will go away after 30 minutes. Pt arrives with face tingling since 1899 tonight (following taking her diltiazem-tingling has not stopped like it typically does) and a chest pressure. Patient states that the she isn't having chest pressure, that it just feels like a book is on my chest . Pt states that she also has been having a pin prick feeling in her right upper arm for the past hour. History of Present Illness HPI narrative: c/o of reaction to cardizem as had facial tingling which has happened every night but last longer tonight - no visual loss and motor loss - has card arrthymia and has neg cath and stress test - MD complaint: chest pain indicative of cardiac Onset (ago): hour(s) Duration: intermittent Activity at onset: other (assoc with medication ) Severity: moderate Risk Factors for CAD: Family Hx of CAD Treatments prior to or on arrival for Cardiac Chest Pain: beta blockers KAROLYN Score for Non-Stemi Age of Patient: 60-69 years old Heart Rate: 50-69 bpm Systolic Blood Pressure: 120-139 mmhg Serum Creatinine: 0.80-1.19 mg/dl CHF Kill[place] Class: I-No CHF Other Risk Factors: None Non-Stemi Risk Score: 102 Risk Stratification: 1-108 = Low Risk Related Data Prior Cardiac Testing/Procedures: Echocardiogram and Cardiac Angiogram On Oral Contraceptives: No Home Medications Medication Instructions Recorded Confirmed aspirin 81 mg tablet,delayed 81 mg PO DAILY heart health 09/03/22 12/17/22 release atenolol 100 mg tablet 50 mg PO DAILY pvc's 12/17/22 12/17/22 diltiazem HCl 180 mg 180 mg PO DAILY palpitation 12/17/22 12/17/22 capsule,extended release 24 hr Allergies Allergy/AdvReac Type Severity Reaction Status Date / Time No Known Allergies Allergy Verified 12/11/22 09:53 [facility] Disclaimer: The information contained in this section may have been updated after the patient was seen, as this information can be updated by other users. Medical History (Updated 12/18/22 @ 00:37 by Panchito Curiel (ED)MD) Family history of ischemic heart disease (IHD) HTN (hypertension), benign Hypertension PAC (premature atrial contraction) PVC (premature ventricular contraction) Sinus bradycardia Sinus pause Social History Smoking Status: Never smoker alcohol intake: never current occupational status: other Travel in the last 8 weeks: Inside the [place] ROS Obtained: Yes All systems reviewed & no additional complaints except as documented Physical Exam General General appearance: alert Head Head exam: normocephalic Eye Eye exam: Present PERRL and EOMI; Absent scleral icterus ENT ENT exam
[2022-12-18 00:38] VITALS: BP 122/54; PULSE 60; RESP 19; TEMP 36.7; O2SAT 97
== END 2022-12-18 00:48 | disposition home or self-care (01) ==
PROVIDERS: Emergency Provider Emergency Medicine; PCP Family Medicine
DX: T46.1X5A Adverse effect of calcium-channel blockers, initial encounter (principal); I49.3 Ventricular premature depolarization; X58.XXXA Exposure to other specified factors, initial encounter; Z82.49 Family history of ischemic heart disease and other diseases of the circulatory system; I10 Essential (primary) hypertension
CPT/HCPCS: 71046; 80048; 83735; 84484; 85025; 93005; 96360; 99285

== ENCOUNTER → 2022-12-18 10:08 | Outpatient (CLI) | payer BC, SELFPAY | PROVIDERS: PCP Family Medicine; Visit Provider Nurse Practitioner | DX: R06.09 Other forms of dyspnea (principal); I45.5 Other specified heart block; I49.3 Ventricular premature depolarization; I10 Essential (primary) hypertension | CPT/HCPCS: 93270 ==

== ENCOUNTER → 2023-09-03 13:03 | Outpatient (CLI) | payer BC, SELFPAY ==
--- NOTE | 2023-09-03 13:07 | MM_ITS ---
PROCEDURE INFORMATION: Exam: MG Bilateral Screening 3D Mammography Exam date and time: 09/03/2023 1:06 PM Age: 62 years old Clinical indication: Screening. No family history of breast cancer. TECHNIQUE: Imaging protocol: Bilateral Screening tomosynthesis and 2D mammography including computer-aided detection (CAD) when performed. COMPARISON: MG MM DIG SCREENING MAMM BI W/CAD 07/16/2021 10:08 AM MG DMSB DIG MAMM-SCREEN LOBO 04/12/2015 8:35 AM 1. MG MM CLIP PLACEMENT RT 09/03/2021 3:05 PM 2. MG MM SURGICAL SPECIMEN RT 09/03/2021 2:42 PM 3. MG MM STEREOTACTIC LOC RT 09/03/2021 2:02 PM 4. MG MM DIG MAMM DX UNILAT RT CAD 08/13/2021 2:13 PM FINDINGS: MAMMOGRAPHY: Breast composition: The breasts are almost entirely fatty. Mass: None. Architectural distortion: None. Calcifications: No suspicious calcifications. Asymmetric density: No developing asymmetry. Skin thickening: None. Axillary adenopathy: None. Other findings: Bilateral biopsy clips. IMPRESSION: No mammographic evidence of malignancy. Annual screening is recommended unless otherwise clinically indicated. ASSESSMENT: BI-RADS Category 2: Benign
== END ==
PROVIDERS: PCP Family Medicine; Visit Provider Family Medicine
DX: Z12.31 Encounter for screening mammogram for malignant neoplasm of breast (principal)
CPT/HCPCS: 77063; 77067

== ENCOUNTER 2024-02-10 08:46 | Observation (INO) | payer BC, SELFPAY ==
[2024-02-10] VITALS (12 sets, daily range): BP systolic 108–175; BP diastolic 56–90; PULSE 62–99; RESP 15–25; TEMP 36.5–37; O2SAT 93–100; BMI 35.2; BMI 35.9
[2024-02-10 08:59] LABS: Microscopic, Urine URINE MICROSCOPIC (MICROSCOPIC)
--- NOTE | 2024-02-10 09:01 | ECG_ITS ---
APPROVED REPORT Exam: Resting ECG HR:89 bpm ECG Measurements Heart Rate 89 AXES WI 171 P 77 QRSd 92 QRS 73 QT 365 T 22 QTc 411 Conclusion SINUS RHYTHM NONSPECIFIC T-WAVE ABNORMALITY Electronically signed by : JOSH PRITCHARD, 02/10/2024 15:28:05
[2024-02-10] MEDS: MORPHINE 4MG/ML SYRINGE 4 MG IV (09:02)
[2024-02-10 09:03] LABS: Basophils % 0.5 % (0.1-2.0); Eosinophils # 0.1 K/mm3 (0.0-0.4); Eosinophils % 0.7 % (0.1-12.0); Hematocrit 46.2 % (37.0-47.0); Hemoglobin 15.1 g/dL (12.2-16.2); Lymphocytes # 1.7 K/mm3 (0.7-4.5); Lymphocytes % 25.3 % (10-50); Mean Corpuscular HGB Conc 32.7 g/dL (31.8-35.4); Mean Corpuscular Hemoglobin 31.3 pg (27.0-31.2); Mean Corpuscular Volume 95.7 fl (81-99); Monocytes # 0.3 K/mm3 (0.1-1.0); Monocytes % 3.9 % (1.7-9.3); Neutrophils # 4.6 K/mm3 (1.8-7.8); Neutrophils % 69.6 % (37.0-80.0); Platelet Count 245 K/mm3 (142-424); Red Blood Count 4.83 M/mm3 (4.20-5.40); Red Cell Distribution Width 13.4 % (11.5-17.5); White Blood Count 6.6 K/mm3 (4.8-10.8)
[2024-02-10] MEDS: LACTATED RINGERS 1000ML 1,000 ML 999 ML IV (09:03)
[2024-02-10] MEDS: ONDANSETRON 4MG/2ML VIAL 4 MG IV ×2 (09:03→11:37)
--- NOTE | 2024-02-10 09:06 | PC.NURSE ---
DR PRITCHARD AT BEDSIDE
[2024-02-10 09:08] LABS: Chloride 106 mmol/L (98-107); Potassium 3.6 mmoL/L (3.5-5.1); Sodium 139 mmol/L (136-145)
[2024-02-10 09:09] LABS: Appearance,Urine CLEAR (Clear); Bilirubin,Urine Negative (Negative); Blood, Urine Negative (Negative); Color,Urine YELLOW (Yellow); Glucose,Urine (UA) 1+ (Negative); Ketones,Urine Negative (Negative); Leukocyte Esterase,Urine Negative (Negative); Nitrate,Urine POSITIVE (Negative); PH,Urine 5.5 (5.0-8.5); Protein,Urine Negative (Negative); Specific Gravity, Urine >= 1.030 (1.005-1.030); Urobilinogen,Urine 0.2 EU/dl (0.2)
[2024-02-10 09:11] LABS: Alanine Aminotransferase 69 U/L (12-78); Albumin Level 4.5 g/dl (3.5-5.0); Albumin/Globulin Ratio 1.6 (1.1-1.8); Alkaline Phosphatase 122 U/L (38-126); Anion Gap 12.6 mEq/L (5-15); Aspartate Amino Transferase 51 U/L (14-36); Bilirubin,Total 1.1 mg/dl (0.2-1.3); Blood Urea Nitrogen 18 mg/dl (7-17); Calcium 9.9 mg/dl (8.4-10.2); Carbon Dioxide 24 mmol/L (22.0-30.0); Creatinine Clearance Estimated 79 mL/min (50-200); Estimated Glomerular Filt Rate 50 ml/min (>60); GFR (African American) 61 ML/MIN (>60); Globulin 2.8 g/dL (1.3-3.2); Glucose 203 mg/dl (74-100); Lipase 195 U/L (23-300); Total Protein,Serum 7.3 g/dl (6.3-8.2)
--- NOTE | 2024-02-10 09:15 | CT_ITS ---
FINAL REPORT TECHNIQUE: Pre-and postcontrast images of the abdomen and pelvis were performed by computed tomography. Extensive 3-D reconstruction images were performed. A CTA was performed. This study was performed with techniques to keep radiation doses as low as reasonably achievable (ALARA). Individualized dose reduction techniques using automated exposure control or adjustment of mA and/or kV according to the patient's size were employed. CLINICAL HISTORY: severe epigastric pain, out of proportion COMPARISON: None FINDINGS: ABDOMEN AND PELVIS: There are small ground glass opacities in the right lung base, that may represent a mild pneumonitis. There is diffuse fatty infiltration of the liver present. The gallbladder is distended, although no definite stones are identified. The common bile duct measures 9 mm in diameter, seen best on image #75 of series 1001. There is a small periampullary diverticulum present. Precontrast images demonstrate no evidence of nephrolithiasis. The right kidney is lobular with multiple cortical defects, May represent changes of chronic pyelonephritis, multiple focal infarcts, or congenital etiologies. The spleen, adrenals and pancreas are unremarkable. The appendix is normal in appearance. No mass or free fluid is noted in the abdomen or pelvis. The uterus appears unremarkable. CTA: The abdominal aorta is proper caliber. The SMA and YAA are patent. There is mild narrowing of the origin of the celiac axis. There is no significant stenosis or calcification. The single renal arteries are patent bilaterally. The aortic bifurcation, common iliac, and internal and external iliac arteries are unremarkable in appearance. IMPRESSION: The gallbladder is distended, with the common bile duct measuring 9 mm in diameter, enlarged. No gallstones are visualized in the gallbladder. There is an adjacent small periampullary diverticulum present. Diffuse fatty infiltration of the liver. The right kidney is lobular with multiple cortical defects, as described above. Mild narrowing of the origin of the celiac axis, otherwise unremarkable CT angiography of the abdomen and pelvis. Reviewed, Interpreted and Dictated by Jerzy Ventura MD Transcribed by Josette Alracon Authenticated and [facility]
[2024-02-10] MEDS: KETOROLAC 30MG/ML VIAL 15 MG IV (09:26)
--- NOTE | 2024-02-10 09:26 | PC.NURSE ---
Rounded on pt. No need voiced at this time. Call light within reach.
[2024-02-10] MEDS: ACETAMINOPHEN 1,000MG/100ML VIAL 1000 MG IV (09:27)
--- NOTE | 2024-02-10 09:32 | PC.NURSE ---
PT gone to CT
[2024-02-10 09:33] LABS: Troponin I < 0.01 ng/ml (0.00-0.034)
[2024-02-10 09:34] LABS: Lactic Acid 2.8 mmol/L (0.7-2.1)
--- NOTE | 2024-02-10 09:42 | PC.NURSE ---
Pt returned from RAD
--- NOTE | 2024-02-10 09:43 | HMH.EDGENADL ---
Discharge Plan Disposition Patient Disposition: Admitted Clinical Impressions Clinical Impression: Abdominal pain, epigastric, Enlarged gallbladder, Common bile duct dilatation Discharge ED Provider: Queta Monroe General Adult HPI General Chief complaint: Abdominal Pain Stated complaint: severe stomach pain Time Seen by Provider: 02/10/24 08:55 Mode of Arrival: Family Vehicle Source of Information: Patient and Medical Record Limitations: No Limitations Description of Symptoms (Recalled from ER Triage Doc. by RN): Pt c/o severe epigastric pain that began last night with nausea. Denies any vomiting, fever, or diarrhea. States the pain comes on every 15 minutes . Denies any urinary issues. Denies any significant PMH or surgical hx. History of Present Illness HPI narrative: This patient is a 63-year-old female with a history of hypertension presenting to the emergency department for evaluation with concern for epigastric pain. Patient reports that last night, she started having epigastric pain right in the center of her stomach and felt like her stomach was in knots. It became progressively worse and today her pain is severe. Nothing makes it better or worse. She also feels nauseated, but she has had no fevers, vomiting, changes in bowel movements, rashes, or swelling. She denies any shortness of breath. She denies any history of abdominal surgery or other concerns. Related Data Home Medications Medication Instructions Recorded Confirmed aspirin 81 mg tablet,delayed 81 mg PO DAILY heart health 09/03/22 02/10/24 release metoprolol succinate 25 mg 25 mg PO DAILY High Blood Pressure 06/10/23 02/10/24 tablet,extended release 24 hr lisinopril 10 1 tab PO DAILY High Blood Pressure 02/10/24 02/10/24 mg-hydrochlorothiazide 12.5 mg tablet Allergies Allergy/AdvReac Type Severity Reaction Status Date / Time diltiazem AdvReac Intermediate flushing,ti Uncoded 06/10/23 13:12 [place]by [facility] Disclaimer: The information contained in this section may have been updated after the patient was seen, as this information can be updated by other users. Medical History Sinus pause PVC (premature ventricular contraction) PAC (premature atrial contraction) Sinus bradycardia Family history of ischemic heart disease (IHD) HTN (hypertension), benign Hypertension Social History Smoking Status: Never smoker alcohol intake: never current occupational status: other Travel in the last 8 weeks: Inside the [place] ROS Obtained: Yes All systems reviewed & no additional complaints except as documented Physical Exam General General appearance: alert Comment: Tearful, uncomfortable appearing, pacing around the room Head Head exam: atraumatic and normocephalic Eye Eye exam: Present normal appearance, PERRL and EOMI ENT ENT exam: Present normal exam, normal oropharynx, mucous membranes moist and normal external ear exam Neck Neck exam: Present normal inspection, full ROM and trachea midline; Absent tenderness Chest Chest inspection: Present normal inspection and symmetric chest wall rise; Absent tenderness Respiratory Respiratory exam: Present normal lung sounds bilaterally; Absent respiratory distress, wheezes, stridor or accessory muscle use Cardiovascular Cardiovascular exam: Present regular rate and normal rhythm Abdominal Exam Abdominal exam: Present soft, tenderness (epigastric) and normal bowel sounds; Absent distention, guarding, rebound or rigidity Extremities Exam Extremities exam: Present normal inspection, full ROM and normal capillary refill; Absent tenderness or edema Back Exam Back exam: Present normal inspection and full ROM; Absent tenderness Neurological Exam Neurological exam: Present alert, oriented X3, CN II-XII intact and normal gait; Absent motor sensory deficit Psychiatric Psychiatric exam: Present normal affect and normal mood Skin Skin exam: Present warm and dry Medical Decision Making Medical Records Medical records reviewed: Yes I reviewed the patient's medical records. Hi Inquiry Pt receiving controlled substance: No Vital Signs: 02/10/24 08:47 02/10/24 09:01 02/10/24 09:45 Temperature 98.2 F Temperature Source Oral Pulse Rate 90 84 Pulse Rate [Right] 99 H Respiratory Rate 25 H Blood Pressure 159/69 H 159/68 H Blood Pressure [Right Arm] 154/86 H Blood Pressure Mean [Right Arm] 108 Blood Pressure Source [Right Arm] Automatic Cuff 02 Sat by Pulse Oximetry 100 99 98 Oxygen Delivery Method Room Air Room Air Room Air 02/10/24 10:01 02/10/24 10:25 02/10/24 10:30 Temperature Temperature Source Pulse Rate 62 76 76 Pulse Rate [Right] Respiratory Rate Blood Pressure 175/90 H 122/69 131/67 Blood Pressure [Right Arm] Blood Pressure Mean [Right Arm] Blood Pressure Source [Right Arm] 02 Sat by Pulse Oximetry 97 96 97 Oxygen Delivery Method Room Air Room Air Room Air 02/10/24 11:00 02/10/24 11:30 02/10/24 13:24 Temperature 98.0 F Temperature Source Oral Pulse Rate 77 75 73 Pulse Rate [Right] Respiratory Rate 15 Blood Pressure 124/67 114/64 111/57 L Blood Pressure [Right Arm] Blood Pressure Mean [Right Arm] Blood Pressure Source [Right Arm] 02 Sat by Pulse Oximetry 95 96 Oxygen Delivery Method Room Air Room Air Room Air Lab Data Lab results reviewed: Yes I reviewed the patient's lab results. Lab Results 02/10/24 08:50: Urine Color Yellow, Urine Appearance Clear, Urine pH 5.5, Ur Specific [place] >= 1.030, Urine Protein Negative, Urine Glucose (UA) 1+, Urine Ketones Negative, Urine Blood Negative, Urine Nitrate Positive, Urine Bilirubin Negative, Urine Urobilinogen 0.2, Ur Leukocyte Esterase Negative, Urine RBC 3-5, Urine WBC 5-10, Ur Squamous Epith Cells 3-5, Urine Bacteria 4+ 02/10/24 08:57: WBC 6.6, RBC 4.83, Hgb 15.1, Hct 46.2, MCV 95.7, MCH 31.3 H, MCHC 32.7, RDW 13.4, Plt Count 245, MPV 8.0, Neut % (Auto) 69.6, Lymph % (Auto) 25.3, [place] % (Auto) 3.9, Eos % (Auto) 0.7, Baso % (Auto) 0.5, Neut # (Auto) 4.6, Lymph # (Auto) 1.7, [place] # (Auto) 0.3, Eos # (Auto) 0.1, Baso # (Auto) 0.0, Sodium 139, Potassium 3.6, Chloride 106, Carbon Dioxide 24, Anion Gap 12.6, BUN 18 H, Creatinine 1.10 H, Estimated Creat Clear 79, Estimated GFR 50 L, Est GFR ( Amer) 61, Glucose 203 H, Lactate 2.8 H, Calcium 9.9, Total Bilirubin 1.1, AST 51 H, ALT 69, Alkaline Phosphatase 122, Troponin I < 0.01, Total Protein 7.3, Albumin 4.5, Globulin 2.8, Albumin/Globulin Ratio 1.6, Lipase 195 02/10/24 12:10: Troponin I < 0.01 02/10/24 13:11: Lactate 1.7 02/10/24 08:57 02/10/24 08:57 Orders (Tests/Meds): ED MEDICATIONS Generic Name Dose Route Start Last Admin Trade Name Delilah PRN Reason Stop Dose Admin Morphine Sulfate 4 mg 02/10/24 12:59 Morphine 4mg/Ml Syringe IV 03/11/24 12:58 Q4HP PRN Severe Pain (7-10) Discontinued Medications Generic Name Dose Route Start Last Admin Trade Name Delilah PRN Reason Stop Dose Admin Acetaminophen 1,000 mg 02/10/24 09:15 02/10/24 09:27 Acetaminophen 1,000mg/100ml Vial IV 02/10/24 09:16 1,000 mg ONCE ONE Administration Hydromorphone HCl 0.5 mg 02/10/24 10:05 02/10/24 10:16 Hydromorphone 2mg/Ml Syringe IV 02/10/24 10:06 0.5 mg ONCE ONE Administration Lactated Ringer's 1,000 mls @ 999 mls/hr 02/10/24 08:55 02/10/24 09:03 Lactated Ringer's 1000 Ml Bag IV 02/10/24 09:55 999 mls/hr .Q1H1M ONE Administration Iopamidol 100 ml 02/10/24 09:45 02/10/24 09:46 Iopamidol-370 (76%);100ml Bottle IV 02/10/24 09:46 100 ml ONCE ONE Administration Ketorolac Tromethamine 15 mg 02/10/24 09:15 02/10/24 09:26 Ketorolac 30mg/Ml Vial IV 02/10/24 09:16 15 mg ONCE ONE Administration Morphine Sulfate 4 mg 02/10/24 08:55 02/10/24 09:02 Morphine 4mg/Ml Syringe IV 02/10/24 08:56 4 mg ONCE ONE Administration Ondansetron HCl 4 mg 02/10/24 08:55 02/10/24 09:03 Ondansetron 4mg/2ml Vial IV 02/10/24 08:56 4 mg ONCE ONE Administration Ondansetron HCl 4 mg 02/10/24 11:37 02/10/24 11:37 Ondansetron 4mg/2ml Vial IV 02/10/24 11:38 4 mg ONCE ONE Administration Sodium Chloride 40 ml 02/10/24 09:45 02/10/24 09:46 0.9 % Sodium Chloride 50 Ml Vial IV 02/10/24 09:46 40 ml ONCE ONE Administration Sodium Chloride 10 ml 02/10/24 09:45 02/10/24 09:46 Sodium Chloride 0.9% 10ml Syr (Rad Only) IV 02/10/24 09:46 10 ml ONCE ONE Administration ORDERS Category Date Time Status CT angio abdomen pelvis Stat Cat Scan 02/10/24 09:15 Taken Surgery Consult (on-call) [Consult to On-Call Gen'l Cons 02/10/24 12:59 Ordered Surgeon] [CONS] Routine US RUQ [US abdomen limited] Stat Exams 02/10/24 11:23 Completed Complete Blood Count Auto Diff AMLAB Lab 02/11/24 06:00 Ordered Complete Blood Count Auto Diff Stat Lab 02/10/24 08:57 Completed Comprehensive Metabolic Panel AMLAB Lab 02/11/24 06:00 Ordered Comprehensive Metabolic Panel Stat Lab 02/10/24 08:57 Completed Lactic Acid Follow Up (RFLX 1) Stat Lab 02/10/24 13:11 Completed Lactic Acid Stat Lab 02/10/24 08:57 Completed Lipase Stat Lab 02/10/24 08:57 Completed Magnesium AMLAB Lab 02/11/24 06:00 Ordered Troponin I Q3H Lab 02/10/24 12:10 Completed Troponin I Q3H Lab 02/10/24 15:00 Ordered Troponin I Stat Lab 02/10/24 08:57 Completed Urinalysis and Microscopic Stat Lab 02/10/24 08:50 Completed Urine Culture Stat Micro 02/10/24 08:50 Received ECG Data Tracing #1: I reviewed this ECG and interpreted as documented below: Normal sinus rhythm with a ventricular rate of [address] changes concerning for ischemia. Nonspecific T wave abnormality. ECG initial impression date: 02/10/24 ECG initial impression time: 09:03 Medical Decision Narrative: In summary, this patient is a 63-year-old female presenting to the Emergency Department for evaluation of severe epigastric pain. Differential diagnoses considered include but are not limited to pancreatitis, cholecystitis, ACS, bowel ischemia, gastritis, peptic ulcer disease, pyelonephritis. Ruling out the most morbid conditions drove assessment. On exam, the patient is very tearful and uncomfortable appearing. workup included CBC, CMP, lipase, troponin, lactic acid, urinalysis, EKG, and CT angiogram of the abdomen and pelvis. She was given a bolus of IV fluids as well as IV morphine, Zofran, acetaminophen, and Toradol. I independently interpreted CT scan prior to the radiologist read and noted distended gallbladder but no other obvious acute concerns. Please see their read for final interpretation. Per radiology, CBD is mildly dilated. Labs were obtained that demonstrated very mildly elevated AST, mildly elevated lactic acid of 2.8, but no other acutely concerning abnormalities. Troponins x 2 are negative. Lipase and bilirubin are within normal limits. On reassessment, patient had some improvement after administration of occasions above, but she is still pacing around the room uncomfortably. Given this, she was given IV Dilaudid. After this, she continued to have nausea, so she was given another dose of IV Zofran. Vitals have improved after pain control fluid resuscitation. I called and had an interactive discussion with Dr. Márquez with general surgery who advised that he felt the patient would benefit from admission for lab reassessment, continued monitoring, and possible surgical intervention if deemed necessary. I did order right upper quadrant ultrasound to help further assess. At this time, patient was deemed to be appropriate for admission. I had and after discussion with Dr. Rowe who admitted the patient for further evaluation and management. Critical Care Critical Care Time Critical Care Time: No
[2024-02-10] MEDS: SODIUM CHLORIDE 0.9% 10ML SYR (RAD ONLY) 10 ML IV (09:46)
[2024-02-10] MEDS: 0.9 % SODIUM CHLORIDE 50 ML VIAL 40 ML IV (09:46)
[2024-02-10] MEDS: IOPAMIDOL-370 (76%);100ML BOTTLE 100 ML IV (09:46)
[2024-02-10 09:50] LABS: Bacteria,Urine 4+ /lpf
--- NOTE | 2024-02-10 10:05 | PC.NURSE ---
DR PRITCHARD AT BEDSIDE
[2024-02-10] MEDS: HYDROMORPHONE 2MG/ML SYRINGE 0.5 MG IV (10:16)
--- NOTE | 2024-02-10 10:18 | PC.NURSE ---
PT STILL IN ALOT OF PAIN WALKING THE FLOORS MORE PAIN MEDS GIVEN AT BS
--- NOTE | 2024-02-10 10:27 | PC.NURSE ---
PT LYING DOWN AND RESTING , O2 SAT 88% ON RA PT PLACED ON 2 LPM VIA CANNULA PAIN IS MUCH BETTER AT BS
--- NOTE | 2024-02-10 10:53 | PC.NURSE ---
DR ROWE PAGED
--- NOTE | 2024-02-10 11:17 | PC.NURSE ---
Dr. Monroe s/w Dr. Márquez
--- NOTE | 2024-02-10 11:21 | PC.NURSE ---
DR PRITCHARD AT BEDSIDE
--- NOTE | 2024-02-10 11:23 | US_ITS ---
FINAL REPORT CLINICAL HISTORY: RUQ abd pain, dilated GB/CBD on CT FINDINGS: RIGHT UPPER QUADRANT ULTRASOUND Sonographic images of the right upper quadrant were obtained. Technically difficult exam. The pancreas is partially obscured. There is fatty infiltration of the liver. The gallbladder is mildly distended with gallstones. The common duct measures 7 mm. Limited images of the right kidney are normal. IMPRESSION: Distended gallbladder with gallstones. Prominent common duct. Fatty liver. Reviewed, Interpreted and Dictated by Jerzy Ventura MD Transcribed by Zofia Cardenas Authenticated and [facility]
--- NOTE | 2024-02-10 11:24 | PC.NURSE ---
RADIOLOGY NOTIFIED OF JOSE US
--- NOTE | 2024-02-10 11:36 | PC.NURSE ---
PT TO US
--- NOTE | 2024-02-10 12:08 | PC.NURSE ---
PT RETURNED FROM US
--- NOTE | 2024-02-10 12:42 | PC.NURSE ---
DR ROWE AT BS
--- NOTE | 2024-02-10 12:42 | PC.NURSE ---
DR ROWE AT BEDSIDE
[2024-02-10 12:46] LABS: Troponin I < 0.01 ng/ml (0.00-0.034)
--- NOTE | 2024-02-10 12:57 | PC.NURSE ---
DR PRITCHARD SPEAKING WITH DR FATIMA
--- NOTE | 2024-02-10 12:59 | PC.NURSE ---
HEAD COUNSELOR NOTIFIED OF ADMISSION
[2024-02-10 13:00] LABS: Reflex Lactic Add Lactic Reflex
--- NOTE | 2024-02-10 13:01 | EXP.SURG.CON ---
History of Present Illness *Admission Date: 02/10/24 *Reason for visit:: Cholecystitis *History of present illness: This is a 63-year-old female seen in consultation after evaluation emergency department for epigastric abdominal pain. Please see HPI forwarded from emergency department evaluation below. Forwarded from emergency department evaluation: General Chief complaint: Abdominal Pain Stated complaint: severe stomach pain Time Seen by Provider: 02/10/24 08:55 Mode of Arrival: Family Vehicle Source of Information: Patient and Medical Record Limitations: No Limitations Description of Symptoms (Recalled from ER Triage Doc. by RN): Pt c/o severe epigastric pain that began last night with nausea. Denies any vomiting, fever, or diarrhea. States the pain comes on every 15 minutes . Denies any urinary issues. Denies any significant PMH or surgical hx. History of Present Illness HPI narrative: This patient is a 63-year-old female with a history of hypertension presenting to the emergency department for evaluation with concern for epigastric pain. Patient reports that last night, she started having epigastric pain right in the center of her stomach and felt like her stomach was in knots. It became progressively worse and today her pain is severe. Nothing makes it better or worse. She also feels nauseated, but she has had no fevers, vomiting, changes in bowel movements, rashes, or swelling. She denies any shortness of breath. She denies any history of abdominal surgery or other concerns. PFS PFS Disclaimer: The information contained in this section may have been updated after the patient was seen, as this information can be updated by other users. Medical History Sinus pause PVC (premature ventricular contraction) PAC (premature atrial contraction) Sinus bradycardia Family history of ischemic heart disease (IHD) HTN (hypertension), benign Hypertension Social History Smoking Status: Never smoker alcohol intake: never current occupational status: other Travel in the last 8 weeks: Inside the [place] Meds Home Medications and Allergies Home Medications Medication Instructions Recorded Confirmed Type aspirin 81 mg tablet,delayed 81 mg PO DAILY heart health 09/03/22 06/10/23 History release lisinopril 10 1 tab PO DAILY #90 tabs 12/29/22 06/10/23 Rx mg-hydrochlorothiazide 12.5 mg tablet metoprolol succinate 25 mg 25 mg PO DAILY 06/10/23 06/10/23 History tablet,extended release 24 hr New Prescriptions to Start Prescriptions: Allergies Allergy/AdvReac Type Severity Reaction Status Date / Time diltiazem AdvReac Intermediate flushing,ti Uncoded 06/10/23 13:12 ngling Exam (Inpt) Vital signs and Labs for Last 24 Hours: Temp Pulse Resp BP Pulse Ox O2 Del Method 98.2 F 75 25 H 114/64 96 Room Air 02/10/24 08:47 02/10/24 11:30 02/10/24 08:47 02/10/24 11:30 02/10/24 11:30 02/10/24 11:30 Laboratory Results - last 24 hr 02/10/24 08:50: Urine Color Yellow, Urine Appearance Clear, Urine pH 5.5, Ur Specific [place] >= 1.030, Urine Protein Negative, Urine Glucose (UA) 1+, Urine Ketones Negative, Urine Blood Negative, Urine Nitrate Positive, Urine Bilirubin Negative, Urine Urobilinogen 0.2, Ur Leukocyte Esterase Negative, Urine RBC 3-5, Urine WBC 5-10, Ur Squamous Epith Cells 3-5, Urine Bacteria 4+ 02/10/24 08:57: WBC 6.6, RBC 4.83, Hgb 15.1, Hct 46.2, MCV 95.7, MCH 31.3 H, MCHC 32.7, RDW 13.4, Plt Count 245, MPV 8.0, Neut % (Auto) 69.6, Lymph % (Auto) 25.3, [place] % (Auto) 3.9, Eos % (Auto) 0.7, Baso % (Auto) 0.5, Neut # (Auto) 4.6, Lymph # (Auto) 1.7, [place] # (Auto) 0.3, Eos # (Auto) 0.1, Baso # (Auto) 0.0, Sodium 139, Potassium 3.6, Chloride 106, Carbon Dioxide 24, Anion Gap 12.6, BUN 18 H, Creatinine 1.10 H, Estimated Creat Clear 79, Estimated GFR 50 L, Est GFR ( Amer) 61, Glucose 203 H, Lactate 2.8 H, Calcium 9.9, Total Bilirubin 1.1, AST 51 H, ALT 69, Alkaline Phosphatase 122, Troponin I < 0.01, Total Protein 7.3, Albumin 4.5, Globulin 2.8, Albumin/Globulin Ratio 1.6, Lipase 195 02/10/24 12:10: Troponin I < 0.01 I & O for Labs for Last 24 Hours: Intake & Output 02/08/24 02/09/24 02/10/24 02/11/24 11:59 11:59 11:59 11:59 Weight 205 lb Constitutional: mild distress Respiratory: Absent respiratory distress Cardiac: Absent Tachycardia GI: Present soft and tenderness Results Labs 02/10/24 08:57 02/10/24 08:57 Labs: Laboratory Results - last 24 hr 02/10/24 08:50: Urine Color Yellow, Urine Appearance Clear, Urine pH 5.5, Ur Specific [place] >= 1.030, Urine Protein Negative, Urine Glucose (UA) 1+, Urine Ketones Negative, Urine Blood Negative, Urine Nitrate Positive, Urine Bilirubin Negative, Urine Urobilinogen 0.2, Ur Leukocyte Esterase Negative, Urine RBC 3-5, Urine WBC 5-10, Ur Squamous Epith Cells 3-5, Urine Bacteria 4+ 02/10/24 08:57: WBC 6.6, RBC 4.83, Hgb 15.1, Hct 46.2, MCV 95.7, MCH 31.3 H, MCHC 32.7, RDW 13.4, Plt Count 245, MPV 8.0, Neut % (Auto) 69.6, Lymph % (Auto) 25.3, [place] % (Auto) 3.9, Eos % (Auto) 0.7, Baso % (Auto) 0.5, Neut # (Auto) 4.6, Lymph # (Auto) 1.7, [place] # (Auto) 0.3, Eos # (Auto) 0.1, Baso # (Auto) 0.0, Sodium 139, Potassium 3.6, Chloride 106, Carbon Dioxide 24, Anion Gap 12.6, BUN 18 H, Creatinine 1.10 H, Estimated Creat Clear 79, Estimated GFR 50 L, Est GFR ( Amer) 61, Glucose 203 H, Lactate 2.8 H, Calcium 9.9, Total Bilirubin 1.1, AST 51 H, ALT 69, Alkaline Phosphatase 122, Troponin I < 0.01, Total Protein 7.3, Albumin 4.5, Globulin 2.8, Albumin/Globulin Ratio 1.6, Lipase 195 02/10/24 12:10: Troponin I < 0.01 Assessment and Plan *Assessment and plan (1) Abdominal pain, epigastric: Status: Acute Category: Medical Code(s): R10.13 - Epigastric pain Plan: Most likely biliary in nature; however, peptic ulcer disease/gastritis/etc. remain a possibility. Proton pump inhibition See abdominal exams (2) Enlarged gallbladder: Status: Acute Category: Medical Code(s): K82.8 - Other specified diseases of gallbladder Plan: Follow-up pending ultrasound (3) Common bile duct dilatation: Status: Acute Category: Medical Code(s): K83.8 - Other specified diseases of biliary tract Plan: Somewhat larger than anticipated for age; however, bilirubin normal at 1.1. If the patient undergoes cholecystectomy, consider intraoperative cholangiogram; however, benefit may not outweigh increased intraoperative risk. Consider MRCP or ERCP in future
--- NOTE | 2024-02-10 13:02 | P.HP_ITS ---
History of Present Illness *Admission Date: 02/10/24 *Reason for visit:: abdominal pain *History of present illness: Ms. Mccracken is a 63-year-old female with history of hypertension and obesity. Presented to the ER because of onset of severe epigastric pain that began last night. Developed nausea. Did not have any vomiting until arriving to the ER. Has had bilious emesis since. Pain comes and goes. Severe in the middle of her abdomen, questionable radiation to the right side of her abdomen. No fever, diarrhea, blood in vomit or stool. Workup in the ER with imaging. CT shows gallbladder distention and dilation of bile ducts. Ultrasound pending. Labs significant for normal white count. Creatinine 1.1 (baseline 1.0). Lactate elevated at 2.8 after emesis. AST less than 2 times upper limit of normal at 51. No elevation of ALT or alk phos. Given pain and image findings, medicine was consulted for admission and surgical evaluation. On evaluation after arriving to the floor. Patient still having abdominal pain but nausea is better after dose of Compazine. No chest pain or shortness of breath. Stable on room air. [facility] Disclaimer: The information contained in this section may have been updated after the patient was seen, as this information can be updated by other users. Medical History H/O nephrolithotomy with removal of calculi Sinus pause PVC (premature ventricular contraction) PAC (premature atrial contraction) Sinus bradycardia Family history of ischemic heart disease (IHD) HTN (hypertension), benign Hypertension Family History Other Diabetes Heart attack Social History Smoking Status: Never smoker alcohol intake: never current occupational status: other Travel in the last 8 weeks: Inside the [place] Review of Systems Review of Systems Review of systems (narrative): 14 point review of systems performed, pertinent positives and negatives as per HPI Meds Home Medications and Allergies Home Medications Medication Instructions Recorded Confirmed Type aspirin 81 mg tablet,delayed 81 mg PO DAILY heart health 09/03/22 02/10/24 History release metoprolol succinate 25 mg 25 mg PO DAILY High Blood Pressure 06/10/23 02/10/24 History tablet,extended release 24 hr lisinopril 10 1 tab PO DAILY High Blood Pressure 02/10/24 02/10/24 History mg-hydrochlorothiazide 12.5 mg tablet New Prescriptions to Start Prescriptions: Allergies Allergy/AdvReac Type Severity Reaction Status Date / Time diltiazem AdvReac Intermediate flushing,ti Uncoded 06/10/23 13:12 ngling Exam Data for Last 24 hours Vital signs and Labs for Last 24 Hours: Temp Pulse Resp BP Pulse Ox O2 Del Method 98.2 F 75 25 H 114/64 96 Room Air 02/10/24 08:47 02/10/24 11:30 02/10/24 08:47 02/10/24 11:30 02/10/24 11:30 02/10/24 11:30 Laboratory Results - last 24 hr 02/10/24 08:50: Urine Color Yellow, Urine Appearance Clear, Urine pH 5.5, Ur Specific [place] >= 1.030, Urine Protein Negative, Urine Glucose (UA) 1+, Urine Ketones Negative, Urine Blood Negative, Urine Nitrate Positive, Urine Bilirubin Negative, Urine Urobilinogen 0.2, Ur Leukocyte Esterase Negative, Urine RBC 3-5, Urine WBC 5-10, Ur Squamous Epith Cells 3-5, Urine Bacteria 4+ 02/10/24 08:57: WBC 6.6, RBC 4.83, Hgb 15.1, Hct 46.2, MCV 95.7, MCH 31.3 H, MCHC 32.7, RDW 13.4, Plt Count 245, MPV 8.0, Neut % (Auto) 69.6, Lymph % (Auto) 25.3, [place] % (Auto) 3.9, Eos % (Auto) 0.7, Baso % (Auto) 0.5, Neut # (Auto) 4.6, Lymph # (Auto) 1.7, [place] # (Auto) 0.3, Eos # (Auto) 0.1, Baso # (Auto) 0.0, Sodium 139, Potassium 3.6, Chloride 106, Carbon Dioxide 24, Anion Gap 12.6, BUN 18 H, Creatinine 1.10 H, Estimated Creat Clear 79, Estimated GFR 50 L, Est GFR ( Amer) 61, Glucose 203 H, Lactate 2.8 H, Calcium 9.9, Total Bilirubin 1.1, AST 51 H, ALT 69, Alkaline Phosphatase 122, Troponin I < 0.01, Total Protein 7.3, Albumin 4.5, Globulin 2.8, Albumin/Globulin Ratio 1.6, Lipase 195 02/10/24 12:10: Troponin I < 0.01 I & O for Last 24 hours: Intake & Output 02/07/24 02/08/24 02/09/24 02/10/24 23:59 23:59 23:59 23:59 Weight 92.986 kg Constitutional Constitutional: no acute distress, obese and cooperative *Routine HEENT Exam Head: Present normocephalic Eye: Present EOMI and PERRL ENT: Present mucous membranes moist *Routine Neck Exam Neck: Present supple; Absent lymphadenopathy *Routine Respiratory Exam Respiratory: Present CTA bilaterally *Routine Cardiovascular Exam Cardiovascular: Present RRR *Routine Abdominal Exam Abdominal: Present soft, normoactive bowel sounds and tenderness (Epigastric); Absent distended *Routine Rectal Exam Rectal:: deferred *Routine Genitalia Exam Genitalia:: deferred *Routine Extremities Exam Extremities: Absent cyanosis, clubbing or edema Routine Back/Spine/Pelvis Exam Back/Spine: Absent CVA tenderness *Routine Skin Exam Skin: Present warm; Absent rash *Routine Neurological Exam Neurological: Present alert, oriented X3 and moving all extremities; Absent altered mental status Routine Psychiatric Exam Psychiatric: Present normal affect Assessment and Plan *Assessment and plan (1) Class 2 obesity: Status: Acute Category: Medical Code(s): E66.9 - Obesity, unspecified (2) Common bile duct dilatation: Status: Acute Category: Medical Code(s): K83.8 - Other specified diseases of biliary tract (3) Enlarged gallbladder: Status: Acute Category: Medical Code(s): K82.8 - Other specified diseases of gallbladder (4) Abdominal pain, epigastric: Status: Acute Category: Medical Code(s): R10.13 - Epigastric pain (5) HTN (hypertension), benign: Status: Acute Category: Medical Code(s): I10 - Essential (primary) hypertension Plan 63-year-old female with onset of nausea and vomiting. Imaging concerning for biliary dilatation and distended gallbladder. Discussed case with ER physician, request admission for serial exams and further monitoring along with surgical eval. Medicine agreed to admit for further management. Problems assessed as follows: Cholecystitis versus gastritis versus bile duct dilatation -Labs relatively normal with normal bilirubin, ALT, alk phos. AST less than 2 times upper limit of normal. Repeat CMP, CBC, magnesium ordered for the morning - Distended gallbladder on personal review of CT. On right upper quadrant ultrasound, gallbladder is distended with gallstones present. Prominent common bile duct. Measures 7 mm. -Surgery consulted, appreciate their recommendations. N.p.o. at midnight with serial exams. Possible cholecystectomy versus EGD tomorrow. -Zofran for nausea, Compazine for severe breakthrough nausea. -In the setting of normal white count, no indication for antibiotics at this time. Will monitor clinically. Hypertension: Patient normotensive at this time. Will hold lisinopril-HCTZ. Continue metoprolol 25 mg daily. Holding aspirin in the setting of potential surgery/scope. Class II obesity complicates all aspects of her care Full code Sips and chips Holding anticoagulation
--- NOTE | 2024-02-10 13:16 | HMH.PHAINT1 ---
Pharmacy Intervention Comments: MEDICATION RECONCILIATION COMPLETED ON PATIENT USING EXTERNAL FILL HISTORY FROM PHARMACY. -EVA LOZANO, JACKLYND
[2024-02-10 13:25] LABS: Lactic Acid Follow Up (RFLX 1) 1.7 mmol/L (0.7-2.1)
--- NOTE | 2024-02-10 13:39 | PC.NURSE ---
arrived by w/c from ED
[2024-02-10] MEDS: PROCHLORPERAZINE 10MG/2ML VIAL 5 MG IV ×2 (14:26→20:19)
[2024-02-10 15:55] LABS: Troponin I < 0.01 ng/ml (0.00-0.034)
--- NOTE | 2024-02-10 20:20 | PC.NURSE ---
pt c/o nausea - tx per JAN and gave ice chips and saltines
[2024-02-11 04:00] VITALS: BP 122/66; PULSE 60; RESP 18; TEMP 36.7; O2SAT 98; BMI 35.7
[2024-02-11 06:17] LABS: Alanine Aminotransferase 50 U/L (12-78); Albumin Level 3.9 g/dl (3.5-5.0); Albumin/Globulin Ratio 1.7 (1.1-1.8); Alkaline Phosphatase 77 U/L (38-126); Anion Gap 7.7 mEq/L (5-15); Aspartate Amino Transferase 37 U/L (14-36); Bilirubin,Total 1.7 mg/dl (0.2-1.3); Blood Urea Nitrogen 17 mg/dl (7-17); Calcium 9.4 mg/dl (8.4-10.2); Carbon Dioxide 26 mmol/L (22.0-30.0); Chloride 108 mmol/L (98-107); Creatinine Clearance Estimated 89 mL/min (50-200); Estimated Glomerular Filt Rate 56 ml/min (>60); GFR (African American) 68 ML/MIN (>60); Globulin 2.3 g/dL (1.3-3.2); Glucose 146 mg/dl (74-100); Potassium 3.7 mmoL/L (3.5-5.1); Sodium 138 mmol/L (136-145); Total Protein,Serum 6.2 g/dl (6.3-8.2)
[2024-02-11 06:33] LABS: Basophils # 0.1 K/mm3 (0-0.2); Basophils % 0.9 % (0.1-2.0); Eosinophils # 0.1 K/mm3 (0.0-0.4); Eosinophils % 1.4 % (0.1-12.0); Hematocrit 42.1 % (37.0-47.0); Hemoglobin 13.6 g/dL (12.2-16.2); Lymphocytes % 35.7 % (10-50); Mean Corpuscular HGB Conc 32.3 g/dL (31.8-35.4); Mean Corpuscular Hemoglobin 30.7 pg (27.0-31.2); Mean Corpuscular Volume 95.2 fl (81-99); Mean Platelet Volume 8.1 fl (7.4-10.4); Monocytes # 0.2 K/mm3 (0.1-1.0); Monocytes % 4.2 % (1.7-9.3); Neutrophils # 3.2 K/mm3 (1.8-7.8); Neutrophils % 57.7 % (37.0-80.0); Platelet Count 209 K/mm3 (142-424); Red Blood Count 4.42 M/mm3 (4.20-5.40); Red Cell Distribution Width 13.5 % (11.5-17.5); White Blood Count 5.5 K/mm3 (4.8-10.8)
--- NOTE | 2024-02-11 07:22 | EXP.SURG.PN ---
Subjective Patient reports: no new complaints and feels better Narrative: The patient states that she feels fine now . Exam Data for Last 24 hours Vital signs and Labs for Last 24 Hours: Temp Pulse Resp BP Pulse Ox O2 Del Method 98.1 F 60 18 122/66 98 Room Air 02/11/24 04:00 02/11/24 04:00 02/11/24 04:00 02/11/24 04:00 02/11/24 04:00 02/11/24 06:24 Laboratory Results - last 24 hr 02/10/24 08:50: Urine Color Yellow, Urine Appearance Clear, Urine pH 5.5, Ur Specific [place] >= 1.030, Urine Protein Negative, Urine Glucose (UA) 1+, Urine Ketones Negative, Urine Blood Negative, Urine Nitrate Positive, Urine Bilirubin Negative, Urine Urobilinogen 0.2, Ur Leukocyte Esterase Negative, Urine RBC 3-5, Urine WBC 5-10, Ur Squamous Epith Cells 3-5, Urine Bacteria 4+ 02/10/24 08:57: WBC 6.6, RBC 4.83, Hgb 15.1, Hct 46.2, MCV 95.7, MCH 31.3 H, MCHC 32.7, RDW 13.4, Plt Count 245, MPV 8.0, Neut % (Auto) 69.6, Lymph % (Auto) 25.3, [place] % (Auto) 3.9, Eos % (Auto) 0.7, Baso % (Auto) 0.5, Neut # (Auto) 4.6, Lymph # (Auto) 1.7, [place] # (Auto) 0.3, Eos # (Auto) 0.1, Baso # (Auto) 0.0, Sodium 139, Potassium 3.6, Chloride 106, Carbon Dioxide 24, Anion Gap 12.6, BUN 18 H, Creatinine 1.10 H, Estimated Creat Clear 79, Estimated GFR 50 L, Est GFR ( Amer) 61, Glucose 203 H, Lactate 2.8 H, Calcium 9.9, Total Bilirubin 1.1, AST 51 H, ALT 69, Alkaline Phosphatase 122, Troponin I < 0.01, Total Protein 7.3, Albumin 4.5, Globulin 2.8, Albumin/Globulin Ratio 1.6, Lipase 195 02/10/24 12:10: Troponin I < 0.01 02/10/24 13:11: Lactate 1.7 02/10/24 15:05: Troponin I < 0.01 02/11/24 05:53: WBC 5.5, RBC 4.42, Hgb 13.6, Hct 42.1, MCV 95.2, MCH 30.7, MCHC 32.3, RDW 13.5, Plt Count 209, MPV 8.1, Neut % (Auto) 57.7, Lymph % (Auto) 35.7, [place] % (Auto) 4.2, Eos % (Auto) 1.4, Baso % (Auto) 0.9, Neut # (Auto) 3.2, Lymph # (Auto) 2.0, [place] # (Auto) 0.2, Eos # (Auto) 0.1, Baso # (Auto) 0.1, Sodium 138, Potassium 3.7, Chloride 108 H, Carbon Dioxide 26, Anion Gap 7.7, BUN 17, Creatinine 1.00, Estimated Creat Clear 89, Estimated GFR 56 L, Est GFR ( Amer) 68, Glucose 146 H D, Calcium 9.4, Magnesium 2.0, Total Bilirubin 1.7 H, AST 37 H D, ALT 50 D, Alkaline Phosphatase 77, Total Protein 6.2 L, Albumin 3.9 D, Globulin 2.3, Albumin/Globulin Ratio 1.7 I & O for Last 24 hours: Intake & Output 02/08/24 02/09/24 02/10/24 02/11/24 11:59 11:59 11:59 11:59 Intake Total 1180 / 1180 Output Total 0 / 0 Balance 1180 / 1180 Weight 205 lb 209 lb 9.002 oz Constitutional Constitutional: no acute distress *Routine Respiratory Exam Respiratory: Absent respiratory distress *Routine Cardiovascular Exam Cardiovascular: Absent tachycardia *Routine Abdominal Exam Abdominal: Present soft Progress Note: A&P Assessment and plan (1) Common bile duct dilatation: Problem details: 7 mm per ultrasound Status: Acute Assessment and plan: Possibly secondary to impacted stone or recent passage of stone; however, could also be normal variant (2) Enlarged gallbladder: Status: Acute Assessment and plan: No definitive evidence of acute cholecystitis. (3) Cholelithiasis: Status: Acute (4) Hyperbilirubinemia: Status: Acute Assessment and plan: Mild elevation today could be secondary to impacted stone versus recent passage versus direct-effect of gallbladder distention. Could also reflect benign transient elevation. Assessment and Plan Assessment and Plan for All Diagnoses:: I have a long discussion with the patient concerning the risks and benefits of cholecystectomy and possible cholangiogram. I have had a long conversation with the patient concerning the risks and benefits of possible ERCP (outside facility) if her bilirubin continues to elevate. She wishes to hold off on surgery for now . Okay from surgical standpoint for discharge with close outpatient follow-up Repeat CBC/CMP tomorrow as an outpatient Repeat CBC/CMP next week with planned outpatient office visit
--- NOTE | 2024-02-11 07:28 | PC.NURSE ---
MD ROWE ROUNDED AND UPDATED PT ABOUT POC, PLAN IS TO DISCHARGE HOME TODAY AND THEN HAVE LABS DRAWN TOMORROW OUTPATIENT AND THEN HAVE LABS AND AN APPOINTMENT AT HIS OFFICE NEXT THURSDAY AND GO FROM THERE ABOUT PLAN DEPENDING ON WHAT LABS SHOW, PATIENT AND VERBALIZED UNDERSTANDING AND OKAY WITH PLAN, PT UP IN CHAIR, NO OTHER NEEDS AT THIS TIME
--- NOTE | 2024-02-11 07:37 | EXP.DC.SUM ---
General Admission date:: 02/10/24 Discharge date: 02/11/24 HPI HPI HPI: Ms. Mccracken is a 63-year-old female with history of hypertension and obesity. Presented to the ER because of onset of severe epigastric pain that began last night. Developed nausea. Did not have any vomiting until arriving to the ER. Has had bilious emesis since. Pain comes and goes. Severe in the middle of her abdomen, questionable radiation to the right side of her abdomen. No fever, diarrhea, blood in vomit or stool. Workup in the ER with imaging. CT shows gallbladder distention and dilation of bile ducts. Ultrasound pending. Labs significant for normal white count. Creatinine 1.1 (baseline 1.0). Lactate elevated at 2.8 after emesis. AST less than 2 times upper limit of normal at 51. No elevation of ALT or alk phos. Given pain and image findings, medicine was consulted for admission and surgical evaluation. On evaluation after arriving to the floor. Patient still having abdominal pain but nausea is better after dose of Compazine. No chest pain or shortness of breath. Stable on room air. Hospital Course Hospital Course Hospital Course: 63-year-old female with onset of nausea and vomiting. Imaging concerning for biliary dilatation and distended gallbladder. Discussed case with ER physician, request admission for serial exams and further monitoring along with surgical eval. Medicine agreed to admit for further management. Monitored overnight. Pain resolved. Benign exam by morning. Labs stable. Plan to discharge home with close follow-up with surgery to discuss elective cholecystectomy as an outpatient. Problems assessed as follows: Cholecystitis versus gastritis versus bile duct dilatation -Presented with abdominal pain, nausea, vomiting. Labs relatively normal with normal bilirubin, ALT, alk phos. AST less than 2 times upper limit of normal. Repeat labs the following morning with slight bump in bilirubin but no significant hepatobiliary or hepatocellular pattern of injury. Pain had resolved. Surgery evaluated and recommended repeat labs twice over the next week with close follow-up next week in clinic to discuss cholecystectomy versus further workup as an outpatient. Patient expressed comfort with this plan. If she is feeling better she is comfortable discharging home. Nausea resolved. Tolerating p.o. liquids. White cell count normal. Hypertension: Patient normotensive at this time. Held lisinopril-HCTZ. Continue metoprolol 25 mg daily. Holding aspirin in the setting of potential surgery/scope. Exam Data for Last 24 hours Vital signs and Labs for Last 24 Hours: Temp Pulse Resp BP Pulse Ox O2 Del Method 98.1 F 60 18 122/66 98 Room Air 02/11/24 04:00 02/11/24 04:00 02/11/24 04:00 02/11/24 04:00 02/11/24 04:00 02/11/24 06:24 Laboratory Results - last 24 hr 02/10/24 08:50: Urine Color Yellow, Urine Appearance Clear, Urine pH 5.5, Ur Specific [place] >= 1.030, Urine Protein Negative, Urine Glucose (UA) 1+, Urine Ketones Negative, Urine Blood Negative, Urine Nitrate Positive, Urine Bilirubin Negative, Urine Urobilinogen 0.2, Ur Leukocyte Esterase Negative, Urine RBC 3-5, Urine WBC 5-10, Ur Squamous Epith Cells 3-5, Urine Bacteria 4+ 02/10/24 08:57: WBC 6.6, RBC 4.83, Hgb 15.1, Hct 46.2, MCV 95.7, MCH 31.3 H, MCHC 32.7, RDW 13.4, Plt Count 245, MPV 8.0, Neut % (Auto) 69.6, Lymph % (Auto) 25.3, [place] % (Auto) 3.9, Eos % (Auto) 0.7, Baso % (Auto) 0.5, Neut # (Auto) 4.6, Lymph # (Auto) 1.7, [place] # (Auto) 0.3, Eos # (Auto) 0.1, Baso # (Auto) 0.0, Sodium 139, Potassium 3.6, Chloride 106, Carbon Dioxide 24, Anion Gap 12.6, BUN 18 H, Creatinine 1.10 H, Estimated Creat Clear 79, Estimated GFR 50 L, Est GFR ( Amer) 61, Glucose 203 H, Lactate 2.8 H, Calcium 9.9, Total Bilirubin 1.1, AST 51 H, ALT 69, Alkaline Phosphatase 122, Troponin I < 0.01, Total Protein 7.3, Albumin 4.5, Globulin 2.8, Albumin/Globulin Ratio 1.6, Lipase 195 02/10/24 12:10: Troponin I < 0.01 02/10/24 13:11: Lactate 1.7 02/10/24 15:05: Troponin I < 0.01 02/11/24 05:53: WBC 5.5, RBC 4.42, Hgb 13.6, Hct 42.1, MCV 95.2, MCH 30.7, MCHC 32.3, RDW 13.5, Plt Count 209, MPV 8.1, Neut % (Auto) 57.7, Lymph % (Auto) 35.7, [place] % (Auto) 4.2, Eos % (Auto) 1.4, Baso % (Auto) 0.9, Neut # (Auto) 3.2, Lymph # (Auto) 2.0, [place] # (Auto) 0.2, Eos # (Auto) 0.1, Baso # (Auto) 0.1, Sodium 138, Potassium 3.7, Chloride 108 H, Carbon Dioxide 26, Anion Gap 7.7, BUN 17, Creatinine 1.00, Estimated Creat Clear 89, Estimated GFR 56 L, Est GFR ( Amer) 68, Glucose 146 H D, Calcium 9.4, Magnesium 2.0, Total Bilirubin 1.7 H, AST 37 H D, ALT 50 D, Alkaline Phosphatase 77, Total Protein 6.2 L, Albumin 3.9 D, Globulin 2.3, Albumin/Globulin Ratio 1.7 I & O for Last 24 hours: Intake & Output 02/08/24 02/09/24 02/10/24 02/11/24 23:59 23:59 23:59 23:59 Intake Total 1180 / 1180 Output Total 0 / 0 0 / 0 Balance 1180 / 1180 0 / 0 Weight 95.056 kg 95.056 kg Constitutional Constitutional: no acute distress, obese and cooperative *Routine HEENT Exam Head: Present normocephalic Eye: Present EOMI and PERRL ENT: Present mucous membranes moist *Routine Neck Exam Neck: Present supple; Absent lymphadenopathy *Routine Respiratory Exam Respiratory: Present CTA bilaterally; Absent rhonchi *Routine Cardiovascular Exam Cardiovascular: Present RRR *Routine Abdominal Exam Abdominal: Present soft and normoactive bowel sounds; Absent tenderness, distended, rebound or guarding *Routine Extremities Exam Extremities: Absent cyanosis, clubbing or edema Routine Back/Spine/Pelvis Exam Back/Spine: Absent CVA tenderness *Routine Skin Exam Skin: Present warm; Absent rash *Routine Neurological Exam Neurological: Present alert, oriented X3 and moving all extremities; Absent altered mental status Results Data Completed and Pending Labs on day of discharge: Labs from last 24 hours 02/11/24 02/10/24 02/10/24 05:53 15:05 13:11 WBC 5.5 RBC 4.42 Hgb 13.6 Hct 42.1 MCV 95.2 MCH 30.7 MCHC 32.3 RDW 13.5 Plt Count 209 MPV 8.1 Neut % (Auto) 57.7 Lymph % (Auto) 35.7 [place] % (Auto) 4.2 Eos % (Auto) 1.4 Baso % (Auto) 0.9 Neut # (Auto) 3.2 Lymph # (Auto) 2.0 [place] # (Auto) 0.2 Eos # (Auto) 0.1 Baso # (Auto) 0.1 Sodium 138 Potassium 3.7 Chloride 108 H Carbon Dioxide 26 Anion Gap 7.7 BUN 17 Creatinine 1.00 Estimated Creat Clear 89 Estimated GFR 56 L Est GFR ( Amer) 68 Glucose 146 H D Lactate 1.7 Calcium 9.4 Magnesium 2.0 Total Bilirubin 1.7 H AST 37 H D ALT 50 D Alkaline Phosphatase 77 Troponin I < 0.01 Total Protein 6.2 L Albumin 3.9 D Globulin 2.3 Albumin/Globulin Ratio 1.7 Lipase Urine Color Urine Appearance Urine pH Ur Specific [place] Urine Protein Urine Glucose (UA) Urine Ketones Urine Blood Urine Nitrate Urine Bilirubin Urine Urobilinogen Ur Leukocyte Esterase Urine RBC Urine WBC Ur Squamous Epith Cells Urine Bacteria 02/10/24 02/10/24 02/10/24 12:10 08:57 08:50 WBC 6.6 RBC 4.83 Hgb 15.1 Hct 46.2 MCV 95.7 MCH 31.3 H MCHC 32.7 RDW 13.4 Plt Count 245 MPV 8.0 Neut % (Auto) 69.6 Lymph % (Auto) 25.3 [place] % (Auto) 3.9 Eos % (Auto) 0.7 Baso % (Auto) 0.5 Neut # (Auto) 4.6 Lymph # (Auto) 1.7 [place] # (Auto) 0.3 Eos # (Auto) 0.1 Baso # (Auto) 0.0 Sodium 139 Potassium 3.6 Chloride 106 Carbon Dioxide 24 Anion Gap 12.6 BUN 18 H Creatinine 1.10 H Estimated Creat Clear 79 Estimated GFR 50 L Est GFR ( Amer) 61 Glucose 203 H Lactate 2.8 H Calcium 9.9 Magnesium Total Bilirubin 1.1 AST 51 H ALT 69 Alkaline Phosphatase 122 Troponin I < 0.01 < 0.01 Total Protein 7.3 Albumin 4.5 Globulin 2.8 Albumin/Globulin Ratio 1.6 Lipase 195 Urine Color Yellow Urine Appearance Clear Urine pH 5.5 Ur Specific [place] >= 1.030 Urine Protein Negative Urine Glucose (UA) 1+ Urine Ketones Negative Urine Blood Negative Urine Nitrate Positive Urine Bilirubin Negative Urine Urobilinogen 0.2 Ur Leukocyte Esterase Negative Urine RBC 3-5 Urine WBC 5-10 Ur Squamous Epith Cells 3-5 Urine Bacteria 4+ DS: Diagnosis Discharge Diagnosis (1) Common bile duct dilatation: Status: Acute Code(s): K83.8 - Other specified diseases of biliary tract Problem details: 7 mm per ultrasound (2) Enlarged gallbladder: Status: Acute Code(s): K82.8 - Other specified diseases of gallbladder (3) Cholelithiasis: Status: Acute Code(s): K80.20 - Calculus of gallbladder without cholecystitis without obstruction (4) Hyperbilirubinemia: Status: Acute Code(s): E80.6 - Other disorders of bilirubin metabolism Meds Home Medications and Allergies Home Medications Medication Instructions Recorded Confirmed Type aspirin 81 mg tablet,delayed 81 mg PO DAILY heart health 09/03/22 02/10/24 History release metoprolol succinate 25 mg 25 mg PO DAILY High Blood Pressure 06/10/23 02/10/24 History tablet,extended release 24 hr lisinopril 10 1 tab PO DAILY High Blood Pressure 02/10/24 02/10/24 History mg-hydrochlorothiazide 12.5 mg tablet ondansetron HCl 4 mg tablet 4 mg PO Q8H PRN nausea and 02/11/24 Rx vomiting #14 tabs New Prescriptions to Start Prescriptions: ondansetron HCl Federico Rowe Allergies Allergy/AdvReac Type Severity Reaction Status Date / Time diltiazem AdvReac Intermediate flushing,ti Uncoded 06/10/23 13:12 ngling Discharge Plan Disposition Patient Disposition: Home, Self-Care Condition: Fair Follow up Plan Follow up with: Chapin Lan MD [Primary Care Provider] - 02/16/24 11:00 am Shimon Márquez MD [Staff Physician] - 02/17/24 10:15 am () Prescriptions/Medication Reconciliation: New ondansetron HCl 4 mg tablet 4 mg PO Q8H PRN (Reason: nausea and vomiting) Qty: 14 0RF Continued aspirin 81 mg tablet,delayed release (DR/EC) 81 mg PO DAILY metoprolol succinate 25 mg tablet extended release 24 hr 25 mg PO DAILY lisinopril-hydrochlorothiazide 10-12.5 mg tablet 1 tab PO DAILY Other Ambulatory Orders: Complete Blood Count Auto Diff (Routine) Timeframe: 1 Day Facility: [facility] - Location: Laboratory Ordered By: Federico Rowe Comprehensive Metabolic Panel (Routine) Timeframe: 1 Day Facility: [facility] - Location: Laboratory Ordered By: Federico Rowe Problem Reconciliation Problems Reviewed?: Yes Patient Discharge Instructions ACTIVITY: Continue current activity DIET: continue same diet and low fat, low cholesterol Patient Instructions: Acute Abdominal Pain, DI for Surgical Site Infection, DI for Laparoscopic Cholecystectomy Providers Primary Care Provider: Chapin Lan Admit Provider: Federico Rowe Attending Provider: Federico Rowe
[2024-02-11 07:48] VITALS: BP 135/71; PULSE 98; RESP 18; TEMP 36.6; O2SAT 98
[2024-02-11] MEDS: METOPROLOL SUCCINATE XL 25MG TABLET 25 MG PO (08:02)
--- NOTE | 2024-02-11 10:39 | HMH.PHAINT1 ---
Pharmacy Intervention Comments: DISCHARGE MEDICATION COUNSELING WAS PROVIDED TO PATIENT AND FAMILY MEMBER. THE INDICATION AND POSSIBLE SIDE EFFECTS WERE DISCUSSED FOR ONDANSETRON. THE PATIENT AND FAMILY MEMBER VERBALIZED UNDERSTANDING WITH NO FURTHER QUESTIONS.
--- NOTE | 2024-02-11 10:45 | PC.NURSE ---
REMOVED PT'S PIV LEFT AC, PT BEING DISCHARGED
--- NOTE | 2024-02-12 11:27 | CARE MANAGER ---
Contacted patient related to hospital discharge. She states she is doing well. She has her new medication and has already had her labs drawn today. She is aware of follow up appointment and denies questions or concerns. MARIXA Owen
== END 2024-02-11 11:15 | disposition home or self-care (01) ==
LOC: ER 13:10 → 2ND 13:39
PROVIDERS: Admitting Provider Internal Medicine Adolescent Medicine; Emergency Provider Emergency Medicine; PCP Family Medicine; Visit Provider Internal Medicine Adolescent Medicine
DX: R10.13 Epigastric pain (principal); K80.20 Calculus of gallbladder without cholecystitis without obstruction; I10 Essential (primary) hypertension; Z79.899 Other long term (current) drug therapy; E66.9 Obesity, unspecified; Z68.35 Body mass index [BMI] 35.0-35.9, adult; E80.6 Other disorders of bilirubin metabolism
CPT/HCPCS: 36415; 74174; 76705; 80053; 81001; 83605; 83690; 83735; 84484; 85025; 87086; 93005; 99285; G0378; J0131; J2405; Q9967

== ENCOUNTER 2024-02-12 09:05 | Outpatient (CLI) | payer BC, SELFPAY ==
[2024-02-12 09:32] LABS: Basophils # 0.1 K/mm3 (0-0.2); Basophils % 1.5 % (0.1-2.0); Eosinophils # 0.1 K/mm3 (0.0-0.4); Eosinophils % 1.1 % (0.1-12.0); Hematocrit 44.3 % (37.0-47.0); Hemoglobin 14.7 g/dL (12.2-16.2); Lymphocytes # 1.6 K/mm3 (0.7-4.5); Lymphocytes % 35.8 % (10-50); Mean Corpuscular HGB Conc 33.1 g/dL (31.8-35.4); Mean Corpuscular Hemoglobin 31.6 pg (27.0-31.2); Mean Corpuscular Volume 95.4 fl (81-99); Mean Platelet Volume 7.8 fl (7.4-10.4); Monocytes # 0.3 K/mm3 (0.1-1.0); Monocytes % 5.7 % (1.7-9.3); Neutrophils # 2.6 K/mm3 (1.8-7.8); Platelet Count 216 K/mm3 (142-424); Red Blood Count 4.65 M/mm3 (4.20-5.40); Red Cell Distribution Width 13.4 % (11.5-17.5); White Blood Count 4.6 K/mm3 (4.8-10.8)
[2024-02-12 09:48] LABS: Chloride 109 mmol/L (98-107); Potassium 4.3 mmoL/L (3.5-5.1); Sodium 139 mmol/L (136-145)
[2024-02-12 09:51] LABS: Alanine Aminotransferase 54 U/L (12-78); Albumin Level 3.9 g/dl (3.5-5.0); Albumin/Globulin Ratio 1.7 (1.1-1.8); Alkaline Phosphatase 84 U/L (38-126); Anion Gap 5.3 mEq/L (5-15); Aspartate Amino Transferase 54 U/L (14-36); Bilirubin,Total 1.2 mg/dl (0.2-1.3); Blood Urea Nitrogen 16 mg/dl (7-17); Carbon Dioxide 29 mmol/L (22.0-30.0); Estimated Glomerular Filt Rate 56 ml/min (>60); GFR (African American) 68 ML/MIN (>60); Globulin 2.3 g/dL (1.3-3.2); Total Protein,Serum 6.2 g/dl (6.3-8.2)
[2024-02-12 09:52] LABS: Calcium 9.7 mg/dl (8.4-10.2); Glucose 156 mg/dl (74-100)
== END 2024-02-12 23:59 ==
LOC: LAB 09:05
PROVIDERS: PCP Family Medicine; Visit Provider Internal Medicine Adolescent Medicine
DX: E80.6 Other disorders of bilirubin metabolism (principal); K80.20 Calculus of gallbladder without cholecystitis without obstruction
CPT/HCPCS: 36415; 80053; 85025

== ENCOUNTER 2024-02-17 07:57 | Outpatient (CLI) | payer BC, SELFPAY ==
[2024-02-17 08:17] LABS: Basophils # 0.1 K/mm3 (0-0.2); Basophils % 1.8 % (0.1-2.0); Eosinophils # 0.1 K/mm3 (0.0-0.4); Hematocrit 47.6 % (37.0-47.0); Hemoglobin 15.6 g/dL (12.2-16.2); Lymphocytes # 1.8 K/mm3 (0.7-4.5); Lymphocytes % 33.4 % (10-50); Mean Corpuscular HGB Conc 32.9 g/dL (31.8-35.4); Mean Corpuscular Hemoglobin 30.8 pg (27.0-31.2); Mean Corpuscular Volume 93.7 fl (81-99); Mean Platelet Volume 7.8 fl (7.4-10.4); Monocytes # 0.4 K/mm3 (0.1-1.0); Monocytes % 6.9 % (1.7-9.3); Neutrophils # 3.1 K/mm3 (1.8-7.8); Neutrophils % 55.9 % (37.0-80.0); Platelet Count 273 K/mm3 (142-424); Red Blood Count 5.08 M/mm3 (4.20-5.40); Red Cell Distribution Width 13.4 % (11.5-17.5); White Blood Count 5.5 K/mm3 (4.8-10.8)
[2024-02-17 09:16] LABS: Chloride 107 mmol/L (98-107); Potassium 4.7 mmoL/L (3.5-5.1); Sodium 138 mmol/L (136-145)
[2024-02-17 09:19] LABS: Alanine Aminotransferase 69 U/L (12-78); Albumin Level 4.5 g/dl (3.5-5.0); Albumin/Globulin Ratio 1.9 (1.1-1.8); Alkaline Phosphatase 84 U/L (38-126); Anion Gap 8.7 mEq/L (5-15); Aspartate Amino Transferase 63 U/L (14-36); Bilirubin,Total 1.3 mg/dl (0.2-1.3); Blood Urea Nitrogen 17 mg/dl (7-17); Calcium 10.2 mg/dl (8.4-10.2); Carbon Dioxide 27 mmol/L (22.0-30.0); Estimated Glomerular Filt Rate 46 ml/min (>60); GFR (African American) 55 ML/MIN (>60); Globulin 2.4 g/dL (1.3-3.2); Glucose 155 mg/dl (74-100); Total Protein,Serum 6.9 g/dl (6.3-8.2)
== END 2024-02-17 23:59 ==
LOC: LAB 07:57
PROVIDERS: PCP Family Medicine; Visit Provider Internal Medicine Adolescent Medicine
DX: E80.6 Other disorders of bilirubin metabolism (principal); K80.20 Calculus of gallbladder without cholecystitis without obstruction
CPT/HCPCS: 36415; 80053; 85025

== ENCOUNTER 2024-02-19 12:04 | Emergency (ER) | payer BC, SELFPAY ==
[2024-02-19] VITALS (8 sets, daily range): BP systolic 101–133; BP diastolic 57–84; PULSE 64–90; RESP 14–20; TEMP 36.9; O2SAT 99–100; BMI 35.0
--- NOTE | 2024-02-19 12:16 | CT_ITS ---
FINAL REPORT CLINICAL HISTORY: RUQ pain COMPARISON: 02/10/2024 FINDINGS: CT OF THE ABDOMEN AND PELVIS WITH CONTRAST Axial CT images of the abdomen and pelvis were obtained after the administration of IV contrast. Coronal and sagittal reformatted images were also obtained and reviewed. This study was performed with techniques to keep radiation doses as low as reasonably achievable (ALARA). Individualized dose reduction techniques using automated exposure control or adjustment of mA and/or kV according to the patient's size were employed. Abdomen: There is mild atelectasis present in the lung bases.. The heart is normal in size. There is fatty infiltration of the liver, also seen on the prior CT. There is mild nonspecific gallbladder wall thickening without definite stones seen. There is extrahepatic biliary ductal dilatation measuring up to 9 mm in diameter. This is of uncertain significance. The spleen is unremarkable. No adrenal mass is present. The pancreas has an unremarkable appearance. There is moderate right renal scarring and atrophy again noted, once again stable when compared to the prior exam. The aorta is normal in caliber. There is no free fluid or adenopathy. No mass or abnormal fluid collection is seen. Pelvis: The appendix is normal in appearance. The urinary bladder is unremarkable. No inflammatory process is seen. There is no evidence of mass or adenopathy. There is no evidence of bowel obstruction. There is a small umbilical hernia present containing fat. IMPRESSION: Diffuse fatty infiltration of the liver, as well as mild nonspecific gallbladder wall thickening without definite stone seen. Extrahepatic biliary ductal dilatation measuring up to 9 mm, of uncertain significance. If indicated MRCP may be helpful for further evaluation. Moderate renal scarring and atrophy on the right side. Reviewed, Interpreted and Dictated by Carlos Gonzalez III, MD Transcribed by Josette Alarcon Authenticated and [facility]
--- NOTE | 2024-02-19 12:24 | HMH.EDGENADL ---
Discharge Plan Disposition Patient Disposition: Home, Self-Care Chief Complaint: Abdominal Pain Prescriptions Prescriptions: No Action aspirin 81 mg tablet,delayed release (DR/EC) 81 mg PO DAILY metoprolol succinate 25 mg tablet extended release 24 hr 25 mg PO DAILY lisinopril-hydrochlorothiazide 10-12.5 mg tablet 1 tab PO DAILY ondansetron HCl 4 mg tablet 4 mg PO Q8H PRN (Reason: nausea and vomiting) Qty: 14 0RF Referrals Follow up/Referrals: Chapin Lan MD [Primary Care Provider] - See instructions Activity Restrictions/Add. Instructions Additional Instructions/Restrictions: Please present immediately to [facility] emergency department for continued evaluation. Clinical Impressions Clinical Impression: Gall bladder inflammation, Common bile duct dilation Stand Alone Forms Stand Alone Forms: Transfer Record - ED Discharge ED Provider: Tanner Contreras General Adult HPI General Chief complaint: Abdominal Pain Stated complaint: Pain in R abd Time Seen by Provider: 02/19/24 12:15 Mode of Arrival: Ambulatory Source of Information: Patient Limitations: No Limitations Description of Symptoms (Recalled from ER Triage Doc. by RN): pt presents to ED with c/o abdominal pain. pain began this am around 0400. pt is scheduled to have gallbladder removed on 02/25/24. pt reports pain begins on right side of abdomen and radiates into her back. History of Present Illness HPI narrative: Patient is a 63-year-old female with past medical history of recent admission for suspected symptomatic cholelithiasis who presents emergency department for evaluation of repeat right upper quadrant abdominal pain. Last week patient had mild elevated transaminases and lactic acid which resolved with a borderline dilated common bile duct for which patient underwent management and repeat lab testing with resolution of labs and except for resolution of pain. Given this patient was to undergo outpatient cholecystectomy this coming with Dr. Zhou. However since discharge she has had waxing waning symptoms, decreased p.o. intake. 4 AM today had severe right upper quadrant abdominal pain has only had crackers and Tylenol throughout the morning due to pain. Due to persistent symptoms she presents here for continued evaluation. No dysuria, no chest pain, no other acute complaints at this time. Related Data Home Medications Medication Instructions Recorded Confirmed aspirin 81 mg tablet,delayed 81 mg PO DAILY heart health 09/03/22 02/17/24 release metoprolol succinate 25 mg 25 mg PO DAILY High Blood Pressure 06/10/23 02/17/24 tablet,extended release 24 hr lisinopril 10 1 tab PO DAILY High Blood Pressure 02/10/24 02/17/24 mg-hydrochlorothiazide 12.5 mg tablet Previous Rx's Medication Instructions Recorded ondansetron HCl 4 mg tablet 4 mg PO Q8H PRN nausea and 02/11/24 vomiting #14 tabs Allergies Allergy/AdvReac Type Severity Reaction Status Date / Time diltiazem AdvReac Intermediate flushing,ti Uncoded 02/17/24 10:05 ngling [facility] Disclaimer: The information contained in this section may have been updated after the patient was seen, as this information can be updated by other users. Medical History H/O nephrolithotomy with removal of calculi Sinus pause PVC (premature ventricular contraction) PAC (premature atrial contraction) Sinus bradycardia Family history of ischemic heart disease (IHD) HTN (hypertension), benign Hypertension Family History Other Diabetes Heart attack Social History Smoking Status: Never smoker alcohol intake: never current occupational status: other Travel in the last 8 weeks: Inside the [place] ROS Obtained: Yes Systems reviewed as appropriate & no additional complaints except as documented Physical Exam General General appearance: alert and other Comment: Appearing uncomfortable in bed Head Head exam: atraumatic and normocephalic Eye Eye exam: Present PERRL and EOMI ENT ENT exam: Present mucous membranes moist Neck Neck exam: Present normal inspection Chest Chest inspection: Present normal inspection and symmetric chest wall rise Respiratory Respiratory exam: Present normal lung sounds bilaterally; Absent respiratory distress Cardiovascular Cardiovascular exam: Present regular rate and normal rhythm Abdominal Exam Abdominal exam: Present soft and tenderness (Epigastric, right upper quadrant) Extremities Exam Extremities exam: Present normal inspection Neurological Exam Neurological exam: Present alert Psychiatric Psychiatric exam: Present normal affect Skin Skin exam: Present warm and dry Medical Decision Making Hi Inquiry Pt receiving controlled substance: No Vital Signs: 02/19/24 12:05 02/19/24 12:12 02/19/24 12:15 Temperature 98.4 F Temperature Source Oral Pulse Rate 90 83 Pulse Rate [Left Radial] 88 Respiratory Rate 14 Blood Pressure Blood Pressure [Right Arm] 133/84 Blood Pressure Mean Blood Pressure Mean [Right Arm] 100 02 Sat by Pulse Oximetry 99 99 99 Oxygen Delivery Method Room Air 02/19/24 13:30 02/19/24 14:00 02/19/24 14:30 Temperature Temperature Source Pulse Rate 64 71 64 Pulse Rate [Left Radial] Respiratory Rate 20 18 18 Blood Pressure 101/57 L 110/65 109/66 L Blood Pressure [Right Arm] Blood Pressure Mean 65 80 81 Blood Pressure Mean [Right Arm] 02 Sat by Pulse Oximetry 100 99 100 Oxygen Delivery Method Room Air Room Air 02/19/24 15:00 Temperature Temperature Source Pulse Rate 65 Pulse Rate [Left Radial] Respiratory Rate 18 Blood Pressure 105/65 L Blood Pressure [Right Arm] Blood Pressure Mean 75 Blood Pressure Mean [Right Arm] 02 Sat by Pulse Oximetry 99 Oxygen Delivery Method Lab Data Lab Results 02/19/24 12:21: WBC 6.4, RBC 5.26, Hgb 16.0, Hct 49.4 H, MCV 94.1, MCH 30.5, MCHC 32.4, RDW 13.3, Plt Count 274, MPV 7.7, Neut % (Auto) 52.5, Lymph % (Auto) 38.2, [place] % (Auto) 5.6, Eos % (Auto) 1.8, Baso % (Auto) 1.9, Neut # (Auto) 3.3, Lymph # (Auto) 2.4, [place] # (Auto) 0.4, Eos # (Auto) 0.1, Baso # (Auto) 0.1, Sodium 138, Potassium 4.3, Chloride 103, Carbon Dioxide 25, Anion Gap 14.3, BUN 18 H, Creatinine 1.10 H, Estimated Creat Clear 78, Estimated GFR 50 L, Est GFR ( Amer) 61, Glucose 125 H, Calcium 10.3 H, Total Bilirubin 1.4 H, Direct Bilirubin 0.2, AST 57 H, ALT 63, Alkaline Phosphatase 80, Troponin I < 0.01, Total Protein 7.8, Albumin 4.7, Globulin 3.1, Albumin/Globulin Ratio 1.5, Lipase 161 02/19/24 12:21 02/19/24 12:21 Orders (Tests/Meds): ED MEDICATIONS Generic Name Dose Route Start Last Admin Trade Name Delilah PRN Reason Stop Dose Admin Sodium Chloride 10 ml 02/19/24 13:10 Sodium Chloride 0.9% 10ml Syr (Rad Only) IV 03/20/24 13:09 NEEDED PRN Maintain IV Site Discontinued Medications Generic Name Dose Route Start Last Admin Trade Name Delilah PRN Reason Stop Dose Admin Acetaminophen 1,000 mg 02/19/24 12:17 02/19/24 12:34 Acetaminophen 1,000mg/100ml Vial IV 02/19/24 12:18 1,000 mg ONCE ONE Administration Lactated Ringer's 1,000 mls @ 999 mls/hr 02/19/24 12:16 02/19/24 12:34 Lactated Ringer's 1000 Ml Bag IV 02/19/24 13:16 999 mls/hr .Q1H1M ONE Administration Iopamidol 75 ml 02/19/24 13:10 02/19/24 13:21 Iopamidol-370 (76%);100ml Bottle IV 02/19/24 13:11 75 ml ONCE ONE Administration Ketorolac Tromethamine 15 mg 02/19/24 12:17 02/19/24 12:33 Ketorolac 30mg/Ml Vial IV 02/19/24 12:18 15 mg ONCE ONE Administration Morphine Sulfate 4 mg 02/19/24 12:17 02/19/24 12:34 Morphine 4mg/Ml Syringe IV 02/19/24 12:18 4 mg ONCE ONE Administration Ondansetron HCl 4 mg 02/19/24 12:17 02/19/24 12:33 Ondansetron 4mg/2ml Vial IV 02/19/24 12:18 4 mg ONCE ONE Administration ORDERS Category Date Time Status CT abdomen pelvis w con Stat Cat Scan 02/19/24 12:16 Completed Bilirubin,Direct Stat Lab 02/19/24 12:21 Completed CBC w/Auto Diff [Complete Blood Count Auto Diff] Stat Lab 02/19/24 12:21 Completed CMP [Comprehensive Metabolic Panel] Stat Lab 02/19/24 12:21 Completed Lipase Stat Lab 02/19/24 12:21 Completed Trop I [Troponin I] Stat Lab 02/19/24 12:21 Completed Troponin I Q3H Lab 02/19/24 15:15 Received Troponin I Q3H Lab 02/19/24 18:30 Ordered ECG Data Tracing #1: Independently interpreted by me, rate 76, rhythm is regular, axis is normal, no ST elevation in anatomical contiguous leads, QTc 403. Medical Decision Narrative: In summary patient is a 63-year-old female past medical history described above who presents emergency department for evaluation abdominal pain. Patient is hemodynamically stable and appearing in pain upon arrival. Differential includes worsening symptomatic cholelithiasis, cholecystitis, choledocholithiasis, among others. Workup will be conducted with hematologic labs, CT abdomen pelvis IV contrast. Initial inventions include crystalloid bolus, multimodal pain control. Workup reviewed by me, hematologic labs are nonactionable, no leukocytosis, stable mildly elevated creatinine, no significant elevated troponin, lipase 161. Total bilirubin 1.4, direct 0.2, AST 57, ALT 63. CT imaging shows diffuse fatty infiltration of the liver, nonspecific gallbladder wall thickening without definitive stones seen, extrahepatic biliary ductal dilatation measuring 9 mm if indicated MRCP may be helpful. Moderate renal scarring on the right side. The case was discussed with surgery Dr. Zhou who agrees this is ambiguous and will likely benefit from gastroenterology evaluation. Case was subsequently discussed with [facility] Dr. De Los Santos who graciously accepted patient for transfer to [place] emergency department for continued evaluation at this time. Critical Care Critical Care Time Critical Care Time: No
[2024-02-19 12:28] LABS: Basophils # 0.1 K/mm3 (0-0.2); Basophils % 1.9 % (0.1-2.0); Eosinophils # 0.1 K/mm3 (0.0-0.4); Eosinophils % 1.8 % (0.1-12.0); Hematocrit 49.4 % (37.0-47.0); Lymphocytes # 2.4 K/mm3 (0.7-4.5); Lymphocytes % 38.2 % (10-50); Mean Corpuscular HGB Conc 32.4 g/dL (31.8-35.4); Mean Corpuscular Hemoglobin 30.5 pg (27.0-31.2); Mean Corpuscular Volume 94.1 fl (81-99); Mean Platelet Volume 7.7 fl (7.4-10.4); Monocytes # 0.4 K/mm3 (0.1-1.0); Monocytes % 5.6 % (1.7-9.3); Neutrophils # 3.3 K/mm3 (1.8-7.8); Neutrophils % 52.5 % (37.0-80.0); Platelet Count 274 K/mm3 (142-424); Red Blood Count 5.26 M/mm3 (4.20-5.40); Red Cell Distribution Width 13.3 % (11.5-17.5); White Blood Count 6.4 K/mm3 (4.8-10.8)
--- NOTE | 2024-02-19 12:28 | ECG_ITS ---
APPROVED REPORT Exam: Resting ECG HR:76 bpm ECG Measurements Heart Rate 76 AXES NV 182 P 77 QRSd 88 QRS 65 QT 372 T 55 QTc 403 Conclusion SINUS RHYTHM NONSPECIFIC T-WAVE ABNORMALITY BORDERLINE ECG Electronically signed by : KEEGAN GOULD, 02/19/2024 16:16:06
[2024-02-19] MEDS: ONDANSETRON 4MG/2ML VIAL 4 MG IV (12:33)
[2024-02-19] MEDS: KETOROLAC 30MG/ML VIAL 15 MG IV (12:33)
[2024-02-19] MEDS: MORPHINE 4MG/ML SYRINGE 4 MG IV (12:34)
[2024-02-19] MEDS: LACTATED RINGERS 1000ML 1,000 ML 999 ML IV (12:34)
[2024-02-19] MEDS: ACETAMINOPHEN 1,000MG/100ML VIAL 1000 MG IV (12:34)
[2024-02-19 12:35] LABS: Alanine Aminotransferase 63 U/L (12-78); Albumin Level 4.7 g/dl (3.5-5.0); Albumin/Globulin Ratio 1.5 (1.1-1.8); Alkaline Phosphatase 80 U/L (38-126); Anion Gap 14.3 mEq/L (5-15); Aspartate Amino Transferase 57 U/L (14-36); Bilirubin,Direct 0.2 mg/dl (0.0-0.4); Bilirubin,Total 1.4 mg/dl (0.2-1.3); Blood Urea Nitrogen 18 mg/dl (7-17); Calcium 10.3 mg/dl (8.4-10.2); Carbon Dioxide 25 mmol/L (22.0-30.0); Chloride 103 mmol/L (98-107); Creatinine Clearance Estimated 78 mL/min (50-200); Estimated Glomerular Filt Rate 50 ml/min (>60); GFR (African American) 61 ML/MIN (>60); Globulin 3.1 g/dL (1.3-3.2); Glucose 125 mg/dl (74-100); Lipase 161 U/L (23-300); Potassium 4.3 mmoL/L (3.5-5.1); Sodium 138 mmol/L (136-145); Total Protein,Serum 7.8 g/dl (6.3-8.2)
[2024-02-19 13:01] LABS: Troponin I < 0.01 ng/ml (0.00-0.034)
[2024-02-19] MEDS: IOPAMIDOL-370 (76%);100ML BOTTLE 75 ML IV (13:21)
--- NOTE | 2024-02-19 13:28 | PC.NURSE ---
pt resting in bed. family at bedside. no needs voiced at this time. call light within reach. bed in lowest position.
--- NOTE | 2024-02-19 14:52 | PC.NURSE ---
Dr Márquez paged
--- NOTE | 2024-02-19 14:54 | PC.NURSE ---
Dr Contreras speaking to Dr Márquez
--- NOTE | 2024-02-19 15:04 | PC.NURSE ---
placed call to [facility] for transfer waiting for call back
--- NOTE | 2024-02-19 15:07 | PC.NURSE ---
speaking to [facility]
--- NOTE | 2024-02-19 15:28 | PC.NURSE ---
Report called to [facility] VELOZ
[2024-02-19 15:53] LABS: Troponin I < 0.01 ng/ml (0.00-0.034)
== END 2024-02-19 15:56 | disposition short-term general hospital (02) ==
PROVIDERS: Emergency Provider Emergency Medicine; PCP Family Medicine
DX: K81.9 Cholecystitis, unspecified (principal); K83.8 Other specified diseases of biliary tract; R10.11 Right upper quadrant pain; I10 Essential (primary) hypertension
CPT/HCPCS: 36415; 74177; 80053; 82248; 83690; 84484; 85025; 93005; 96361; 96374; 96375; 99285; J0131; J2405; Q9967

== ENCOUNTER 2025-09-08 09:37 | Outpatient (CLI) | payer BC, SELFPAY ==
--- OUTSIDE RECORDS SUMMARY | 2025-08-11 08:45 | XMS_ITS | Encounter Summary ---
Author Organization [facility] Address [address] [place] [address] Care Team Providers Care Marble Mechanic Helper Name Role Phone Chapin Lan MD Primary Care Provider + Reason for Visit * Reason Comments FU on weight loss efforts Encounter Details Date Type Department Care Team (Late st Contact Info) Description 08/11/2025 8:45 AM EDT Office Visit [facility] [address] [place] [address] Chapin Lan MD [address] [place] [address] Class 2 severe obesity due to excess calories with serious comorbidity and body mass index (BMI) of 35.0 to 35.9 in adult (Primary Dx); Encounter for weight management; Primary hypertension Social History Tobacco Use Types Packs/Day Years Used Date Smoking Tobacco: Never Smokeless Tobacco: Never Alcohol Use Standard Drinks/Week Comments Never 0 (1 standard drink = 0.6 oz pur e alcohol) PHQ-2 Answer Date Recorded Retired PHQ-9: Brief Depression Severity Measure Score 0 05/07/2023 PHQ-2 Answer Date Recorded Patient Health Questionnaire-2 Score 0 05/11/2025 Comments Unknown Sex and Gender Information Value Date Recorded Sex Assigned at Not on file Legal Sex Female 9:35 AM EDT Gender Identity Not on file Sexual Orientation Not on file documented as of this encounter Last Filed Vital Signs Vital Sign Reading Time Taken Comments Blood Pressure 118/70 08/11/2025 8:25 AM EDT Pulse 67 08/11/2025 8:25 AM EDT Temperature 36.3 C (97.3 F) 08/11/2025 8:25 AM EDT Respiratory Rate 20 08/11/2025 8:25 AM EDT Oxygen Saturation 97% 08/11/2025 8:25 AM EDT Inhaled Oxygen Concentration - - Weight 91.1 kg (200 lb 12.8 oz) 08/11/2025 8:25 AM EDT Height 162.6 cm (5' 4 ) 08/11/2025 8:25 AM EDT Body Mass Index 34.47 08/11/2025 8:25 AM EDT documented in this encounter Progress Notes * Chapin Lan MD - 08/11/2025 8:46 AM EDTAssociated Problem(s): Primary hypertension See plan under obesity * Chapin Lan MD - 08/11/2025 8:45 AM EDTAssociated Problem(s): Class 2 severe obesity due to excess calories with serious comorbidity in adult Weight loss has begun. Patient is only into 8 weeks of treatment with tirzepatide. Plan will be to maintain 5 mg dosing and reassess in another 8 weeks. At that time discussion and consideration can be given to increasing dose. Patient will contact the office should symptoms of lightheadedness develop but at this time will not change any antihypertensives. * Chapin Lan MD - 08/11/2025 8:45 AM EDT Chief Complaint Patient presents with FU on weight loss efforts Subjective Shelley Mccracken is a 64 y.o. who presents for weight management visit with weight related comorbiditiesof HTN and hepatic steatosis. After 8 weeks of treatment with Zepbound patient weight is down 6 pounds which is her lowest recorded weight in the last year. Patient has found it easier to stop eatingwhen she feels satiated. She denies side effects. With the weight loss she is experience she deniesany lightheadedness or suspicion of low blood pressure. The following portions of the patient's history were reviewed and updated as appropriate: allergies, current medications, past family history, past medical history, past social history, past surgicalhistory, and problem list. Review of Systems Objective Vital Signs: BP 118/70 Pulse 67 Temp 97.3 ??F (36.3 ??C) Resp 20 Ht 162.6 cm (64 ) Wt 91.1 kg (200 lb 12.8 oz) SpO2 97% BMI 34.47 kg/m?? Physical Exam Vitals reviewed. Constitutional: Appearance: Normal appearance. Neurological: Mental Status: She is alert. Result Review Assessment and Plan Diagnoses and all orders for this visit: 1. Class 2 severe obesity due to excess calories with serious comorbidity and body mass index (BMI)of 35.0 to 35.9 in adult (Primary) Assessment & Plan: Weight loss has begun. Patient is only into 8 weeks of treatment with tirzepatide. Plan will be to maintain 5 mg dosing and reassess in another 8 weeks. At that time discussion and consideration can be given to increasing dose. Patient will contact the office should symptoms of lightheadedness develop but at this time will not change any antihypertensives. 2. Encounter for weight management 3. Primary hypertension Assessment & Plan: See plan under obesity Follow Up Return in about 8 weeks (around 10/06/2025) for Next scheduled follow up Weight Managment. Patient was given instructions and counseling regarding her condition or for health maintenance advice. Please see specific information pulled into the AVS if appropriate. documented in this encounter Plan of Treatment Upcoming Encounters Date Type Department Care Team (Late st Contact Info) Description 10/09/2025 9:45 AM EST Office Visit [facility] [address] [place] [address] Chapin Lan MD [address] [place] [address] 05/15/2026 10:15 AM EDT Office Visit [facility] [address] [place] [address] Chapin Lan MD [address] [place] [address] documented as of this encounter Visit Diagnoses Diagnosis Class 2 severe obesity due to excess calories with serious comorbidity and body mass index (BMI) of 35.0 to 35.9 in adult- Primary Encounter for weight management Primary hypertension Unspecified essential hypertension documented in this encounter Care Teams Marble Mechanic Helper Relationship Specialty Start Date End Date Chapin Lan MD [address] [place] [address] PCP - General Family Medicine 04/25/22 documented as of this encounter
--- OUTSIDE RECORDS SUMMARY | 2025-08-24 15:00 | XMS_ITS | Encounter Summary ---
Author Organization [facility] Address [address] [place] [id number] Care Team Providers Care Obstetrician/Gynecologist Name Role Phone Chapin Lan MD Primary Care Provider + Reason for Referral * Diagnostic Imaging (Routine) - Authorized Specialty Diagnoses / Procedures Referred By Contac t Referred To Contact Diagnoses Encounter for screening mammogram for malignant neoplasm of breast Procedures Mammo Screening Digital Tomosynthesis Bilateral With CAD Chapin Lan MD [address] [place] [address] Phone: tel: fax: [facility] [address] [place] [address] Phone: tel: fax: Referral ID Status Reason Start Date Expiration Date V isits Requested Visits Authorized [id number] Authorized 08/24/2025 11/23/2026 1 1 Reason for Visit * Reason Comments breast changes Encounter Details Date Type Department Care Team (Late Contact Info) Description 08/24/2025 3:00 PM EDT Office Visit [facility] [address] [place] [phone] Chapin Lan MD [address] [facility] [place] [address] Encounter for screening mammogram for malignant neoplasm of breast (Primary Dx) Social History Tobacco Use Types Packs/Day Years [...] Sign Reading Time Taken Comments Blood Pressure 130/70 08/24/2025 2:26 PM EDT Pulse 71 08/24/2025 2:26 PM EDT Temperature 36.6 C (97.8 F) 08/24/2025 2:26 PM EDT Respiratory Rate 20 08/24/2025 2:26 PM EDT Oxygen Saturation 97% 08/24/2025 2:26 PM EDT Inhaled Oxygen Concentration - - Weight 91.1 kg (200 lb 12.8 oz) 08/24/2025 2:26 PM EDT Height 162.6 cm (5' 4 ) 08/24/2025 2:26 PM EDT Body Mass Index 34.47 08/24/2025 2:26 PM EDT documented in this encounter Progress Notes * Chapin Lan MD - 08/24/2025 3:00 PM EDT Chief Complaint Patient presents with breast changes Subjective Shelley Mccracken is a 64 y.o. who presents for breast examination. Patient contacted the office earlier in the week requesting order for a mammogram but stated during the phone call that she had noticed adifference between the right and left breast. Patient was asked to come in for breast examination. She now is not so sure there was any difference between the right and left breast having once believe that the right breast felt firmer . She did not notice any discrete nodules. She has had prior biopsies of both the left and right breast with the left breast occurring in 2014 in the right breast occurring in 2020. Objective Vital Signs: BP 130/70 Pulse 71 Temp 97.8 ??F (36.6 ??C) Resp 20 Ht 162.6 cm (64 ) Wt 91.1 kg (200 lb 12.8 oz) SpO2 97% BMI 34.47 kg/m?? Physical Exam Vitals reviewed. Chest: Breasts: Right: Normal. Left: Normal. Neurological: Mental Status: She is alert. Result Review Assessment and Plan Diagnoses and all orders for this visit: 1. Encounter for screening mammogram for malignant neoplasm of breast (Primary) - Mammo Screening Digital Tomosynthesis Bilateral With CAD; Future Plan: Patient has no palpable abnormality and so screening mammogram will be arranged at [facility] Follow Up No follow-ups on file. Patient was given instructions and counseling regarding her condition or for health maintenance advice. Please see specific information pulled into the AVS if appropriate. documented in this encounter Plan of Treatment Upcoming Encounters Date Type Department Care Team (Late st Contact Info) Description 10/09/2025 9:45 AM EST Office Visit [facility] [address] [place] [phone] Chapin Lan MD [address] [place] [address] 05/15/2026 10:15 AM EDT Office Visit [facility] [address] [place] [phone] Chapin Lan MD [address] [place] [address] Scheduled Orders Name Type Priority Associated Diagnoses Orde r Schedule Mammo Screening Digital Tomosynthesis Bilateral With CAD Imaging Routine Encounter for screening mammogram for malignant neoplasm of breast Expected: 08/29/2025, Expires: 08/24/2026 documented as of this encounter Visit Diagnoses Diagnosis Encounter for screening mammogram for malignant neoplasm of breast- Primary documented in this encounter Care Teams Obstetrician/Gynecologist Relationship Specialty Start Date End Date Chapin Lan MD [address] [place] [address] PCP - General Family Medicine 04/25/22 documented as of this encounter
--- NOTE | 2025-09-08 09:39 | MM_ITS ---
PROCEDURE INFORMATION: Exam: MG Bilateral Screening 3D Mammography Exam date and time: 09/08/2025 9:42 AM Age: 64 years old Clinical indication: Screening examination TECHNIQUE: Imaging protocol: Bilateral Screening tomosynthesis and 2D mammography including computer-aided detection (CAD) when performed. COMPARISON: 1. MG MM DIG SCREENING MAMM BI W/CAD 09/03/2023 1:06 PM 2. MG MM CLIP PLACEMENT RT 09/03/2021 3:05 PM FINDINGS: MAMMOGRAPHY: Breast composition: The breasts are almost entirely fatty. Mass: None. Architectural distortion: None. Calcifications: No suspicious calcifications. Asymmetric density: None. Skin thickening: None. Axillary adenopathy: None. IMPRESSION: No mammographic evidence of malignancy. Annual screening is recommended unless otherwise clinically indicated. ASSESSMENT: BI-RADS Category 1: Negative.
--- OUTSIDE RECORDS SUMMARY | 2025-09-08 09:40 | XMS_ITS | Clinical Summary ---
Author Organization [facility] Address [address] [place] [id number] Care Team Providers Care Electroneurodiagnostic Technologist Name Role Phone Chapin Lan MD Primary Care Provider + Allergies Active Allergy Reactions Criticality Noted Date Comments Diltiazem Rash Low 01/02/2023 Tingling in face Medications aspirin 81 MG chewable tablet Chew 1 tablet Daily. Active latanoprost (XALATAN) 0.005 % ophthalmic solution 05/09/20 25 Active losartan-hydroch lorothiazide (Hyzaar) 50-12.5 MG per tabletIndication s:Essential hypertension Take 1 tablet by mouth Daily. 90 tablet 3 05/11/20 25 Active metoprolol succinate XL (TOPROL-XL) 25 MG 24 hr tabletIndication s:Essential hypertension Take 1 tablet by mouth Daily. 90 tablet 3 05/11/20 25 Active Tirzepatide-Weig ht Management (Zepbound) 5 MG/0.5ML solution auto-injector INJECT CONTENTS OF 1 AUTO-INJECTOR SUBCUTANEOUSLY ONCE A WEEK 6 mL 07/27/20 25 Active Active Problems Problem Noted Date Diagnosed Date Hepatic steatosis 05/11/2025 Primary hypertension 04/25/2022 Assessment & Plan (08/11/2025 8:46 AM EDT): See plan under obesity Assessment & Plan (04/25/2022 10:22 AM EDT): Hypertension is Well-controlled. Continue current treatment regimen. Blood pressure will be reassessed 1 year. Class 2 severe obesity due t o excess calories with serious comorbidity in adult 04/25/2022 Assessment & Plan (08/11/2025 8:45 AM EDT): Weight loss has begun. Patient is only into 8 weeks of treatment with tirzepatide. Plan will be to maintain 5 mg dosing and reassess in another 8 weeks. At that time discussion and consideration can be given to increasing dose. Patient will contact the office should symptoms of lightheadedness develop but at this time will not change any antihypertensives. Assessment & Plan (05/24/2024 2:55 PM EDT): Long discussion was had with the patient regarding this recent report. There is a loose association but no definitive evidence that semaglutide causes the condition. However, an alternative medication does exist in the form of Contrave. Patient is agreeable to a course of this medication first. We discussed mechanism of action of medication as well as side effects. Anticipate need for PA. Patient will keep her Wegovy on ice while we are awaiting more information on this potential relationship Assessment & Plan (07/21/2023 9:31 AM EDT): Patient's (Body mass index is 35.67 kg/m .) indicates that they are morbidly/severely obese (BMI > 40 or > 35 with obesity - related health condition) with health conditions that include hypertension and osteoarthritis . Weight is unchanged. BMI is above average; BMI management plan is completed. We discussed portion control, increasing exercise, pharmacologic options including Wegovy, and referral to dietitian . Patient was given some additional literature on Wegovy. We discussed benefits of medication and side effects of the medication. Patient was also made aware of current shortage of the medication. When she has reviewed the additional literature she has been given she will make a decision on whether to initiate medication therapy. Physical activity to prevent weight gain was stressed. Referral to dietitian was suggested outpatient to maximize alternate modalities of weight control prior to initiating medication. Assessment & Plan (04/25/2022 10:23 AM EDT): Patient's (Body mass index is 33.99 kg/m .) indicates that they are obese (BMI >30) with health conditions that include hypertension . Weight is unchanged. BMI is is above average; BMI management plan is completed. We discussed low calorie, low carb based diet program and portion control. Encounters Date Type Department Care Team Description 08/24/2025 3:00 PM EDT Office Visit [facility] [address] [place], [place] [address] Chapin Lan MD Encounter for screening mammogram for malignant neoplasm of breast (Primary Dx) 08/24/2025 Travel 08/23/2025 Telephone [facility] [address] [place], [place] [address] Chapin Lan MD ORDERS 08/11/2025 8:45 AM EDT Office Visit [facility] [address] [place], [place] [address] Chapin Lan MD Class 2 severe obesity due to excess calories with serious comorbidity and body mass index (BMI) of 35.0 to 35.9 in adult (Primary Dx); Encounter for weight management; Primary hypertension 08/11/2025 Travel 07/25/2025 Refill [facility] [address] [place], [place] [address] Chapin Lan MD from Last 3 Months Immunizations Immunization Administration Dates Next Due COVID-19 (PFIZER) Purple Cap Monovalent 10/23/20,03/07/2021,02/15/2021 Covid-19 (Pfizer) Heath Cap Monovalent 04/21/2022 Family History Medical History Relation Name Comments Heart attack Father Heart disease Father Hypertension Father Diabetes Mother Kidney disease Mother Relation Name Status Comments Father Mother Social History Tobacco Use Types Packs/Day Years [...] on file Sexual Orientation Not on file Last Filed Vital Signs Vital Sign Reading [...] Mass Index 34.47 08/24/2025 2:26 PM EDT Plan of Treatment Upcoming Encounters Date Type Department Care Team (Late st Contact Info) Description 10/09/2025 9:45 AM EST Office Visit [facility] [address] [phone] Chapin Lan MD [address] [place] [address] 05/15/2026 10:15 AM EDT Office Visit [facility] [address] [place] [place] [phone] Chapin Lan MD [address] [place] [address] Health Maintenance Due Date Last Done Comments Annual Gynecologic Pelvic an d Breast Exam 1962 Pneumococcal Vaccine 50+ (1 of 2 - PCV) 1981 TDAP/TD VACCINES (1 - Tdap) 1981 PAP SMEAR 1983 COLON CANCER SCREENING 5 YEA R SIGMOIDOSCOPY [address] COLONOGRAPHY 2007 FECAL OCCULT BLOOD TEST 2007 FIT Testing (1 year) 2007 ZOSTER VACCINE (1 of 2) 2012 INFLUENZA VACCINE 06/16/2025 MAMMOGRAM 09/03/2025 09/03/2023, 09/03/2021 ANNUAL PHYSICAL 05/11/2026 05/11/2025, 05/09/2024 LIPID PANEL 05/11/2026 05/11/2025, 04/17, 05/07/2023, Additional history exists COLOGUARD 07/17/2026 07/17/2023, 07/17/2021 COLORECTAL CANCER SCREENING 07/17/2026 HEPATITIS C SCREENING Completed 02/19/2024 Procedures Procedure Name Priority Date/Time Associated Diagnosis Comments LIPID PANEL Routine 05/11/2025 10:12 AM EDT Class 2 severe obesity due to excess calories with serious comorbidity and body mass index (BMI) of 35.0 to 35.9 in adult Essential hypertension MAMMO SCREENING DIGITAL TOMOSYNTHESIS BILATERAL W CAD Routine 09/03/2023 Encounter for screening mammogram for malignant neoplasm of breast SCANNED - COLOGUARD 07/17/2023 from Last 3 Months or Most Recently Relevant to Health Maintenance Results * (ABNORMAL) Lipid Panel (05/11/2025 10:12 AM EDT) Total Cholesterol 216(H) 0 - 200 mg/dL [facility] Comment: Cholesterol Reference Ranges (U.S. Department of Health and Human Services ATP III Classifications) Desirable <200 mg/dL Borderline High 200-239 mg/dL High Risk >240 mg/dL Triglyceride Reference Ranges (U.S. Department of Health and Human Services ATP III Classifications) Normal <150 mg/dL Borderline High 150-199 mg/dL High 200-499 mg/dL Very High >500 mg/dL HDL Reference Ranges (U.S. Department of Health and Human Services ATP III Classifications) Low <40 mg/dl (major risk factor for CHD) High >60 mg/dl ('negative' risk factor for CHD) LDL Reference Ranges (U.S. Department of Health and Human Services ATP III Classifications) Optimal <100 mg/dL Near Optimal 100-129 mg/dL Borderline High 130-159 mg/dL High 160-189 mg/dL Very High >189 mg/dL LDL is calculated using the NIH LDL-C calculation. Triglycerides 121 0 - 150 mg/dL [facility] HDL Cholesterol 74(H) 40 - 60 mg/dL [facility] VLDL Cholesterol Jonatan 21 5 - 40 mg/dL [facility] LDL Chol Calc (NIH) 121(H) 0 - 100 mg/dL [facility] Blood 05/11/2025 10:1 2 AM EDT 05/11/2025 Narrative [facility] (AMBULATORY) - 05/12/2025 3:07 AM EDT Performed at: [address] [place] [id number] Apprentice Photographer: Navneet Pool MD, Phone: [phone] Patient Fasting: Y Chapin Lan MD LAB BLOOD ORDERABLES Fin al Result [facility] (AMBULATORY) [address] [place] [address], [facility] [address] [place] [address], [place] [phone] * Mammo screening digital tomosynthesis bilateral w CAD (09/03/2023) Anatomical Region Laterality Modality Breast N/A Mammography Chapin Lan MD IMG MAMMOGRAPHY ORDERABL ES Final Result * SCANNED - COLOGUARD (07/17/2023) [facility] LAB BLOOD ORDERABLES Final Re sult from Last 3 Months or Most Recently Relevant to Health Maintenance Insurance [employer] P[employer] Care Teams Electroneurodiagnostic Technologist Relationship Specialty Start Date End Date Chapin Lan MD [address] [place] [address] PCP - General Family Medicine 04/25/22
--- OUTSIDE RECORDS SUMMARY | 2025-09-08 09:40 | XMS_ITS | Clinical Summary ---
Author Organization [facility] Address [address] [place] [address] Phone Care Team Providers Care Accreditation Manager Name Role Phone Unavailable Primary Care Provider Unavailabl e Allergies Active Allergy Reactions Criticality Noted Date Comments Diltiazem Other (See Comments) Low 01/02/2023 Tingling in face Medications lisinopriL-hydro chlorothiazide (PRINZIDE;ZESTOR ETIC) 10-12.5 mg Oral Tablet Take 1 Tablet by mouth daily. 12/02/2022 Active aspirin 81 mg Oral Tablet, Chewable Take 81 mg by mouth daily. Active metoprolol succinate (TOPROL-XL) 25 mg Oral Tablet Sustained Release 24 hrIndications:PV C (premature ventricular contraction) Take 1 tablet by mouth once daily 90 Tablet 11/30/2023 Active Active Problems Problem Noted Date Diagnosed Date Class 1 obesity due to exces s calories with serious comorbidity and body mass index (BMI) of 33.0 to 33.9 in adult 04/25/2022 Overview (01/02/2023): Last Assessment & Plan: Patient's (Body mass index is 33.99 kg/m .) indicates that they are obese (BMI >30) with health conditions that include hypertension . Weight is unchanged. BMI is is above average; BMI management plan is completed. We discussed low calorie, low carb based diet program and portion control. Essential hypertension 04/25/2022 Overview (01/02/2023): Last Assessment & Plan: Hypertension is Well-controlled. Continue current treatment regimen. Blood pressure will be reassessed 1 year. Social History Tobacco Use Types Packs/Day Years Used Date Smoking Tobacco: Never Smokeless Tobacco: Never Tobacco Cessation:Counseling Given: Not Answered Comments Unknown Sex and Gender Information Value Date Recorded Sex Assigned at Not on file Legal Sex Female 1:38 PM EST Gender Identity Not on file Sexual Orientation Not on file Last Filed Vital Signs Vital Sign Reading Time Taken Comments Blood Pressure 124/70 01/02/2023 1:05 PM EST Pulse 67 01/02/2023 1:05 PM EST Temperature - - Respiratory Rate - - Oxygen Saturation 99% 01/02/2023 1:05 PM EST Inhaled Oxygen Concentration - - Weight 93 kg (205 lb) 01/02/2023 1:05 PM EST Height - - Body Mass Index - - Plan of Treatment Health Maintenance Due Date Last Done Comments Annual Wellness Exam 1965 Hepatitis C Screening 1980 DTaP/TDaP/Td (1 - Tdap) 1981 Cervical Cancer Screening 1983 Pap Smear 1983 HPV/Pap Cotest 1992 Breast Cancer Screening 2002 Cologuard 2007 Colon Cancer Screening 2007 Colonoscopy 2007 FIT 2007 Sigmoidoscopy 2007 Virtual Colonography 2007 Pneumococcal Vaccine 50+ (1 of 1 - PCV) 2012 Zoster (1 of 2) 2012 COVID-19 Vaccine ( season) 2025 04/21/2022, 10/23/2021, 03/07/2021, Additional history exists Influenza Vaccine (#1) 2025 Hepatitis B Vaccine Aged Out No longe r eligible based on patient's age to complete this topic Meningococcal B Vaccine Aged Out No l onger eligible based on patient's age to complete this topic Insurance [employer] PPO
--- OUTSIDE RECORDS SUMMARY | 2025-09-08 09:40 | XMS_ITS | Encounter Summary ---
Author Organization [facility] Address [address] [place] [address] Care Team Providers Care Supervisor Wrapping Room Name Role Phone Chapin Lan MD Primary Care Provider + Reason for Visit * Reason Onset Date Comments ORDERS 08/23/2025 Encounter Details Date Type Department Care Team (Late st Contact Info) Description 08/23/2025 Telephone [facility] [address] [place] [address] Chapin Lan MD [address] [place] [address] ORDERS Social History Tobacco Use Types Packs/Day Years [...] on file documented as of this encounter Miscellaneous Notes * Telephone Encounter - Naz Graham MA - 08/23/2025 10:23 AM EDT Informed pt that she needed an appt for this. It is considered diagnostic now. Transferred to the front to schedule. * Telephone Encounter - Kayla Mendoza RegSched Rep - 08/23/2025 9:29 AM EDT Caller: Shelley Mccracken Relationship: Self Best call back number: [phone] What orders are you requesting (i.e. lab or imaging): MAMMOGRAM In what timeframe would the patient need to come in: SOON POSSIBLE Where will you receive your lab/imaging services: [facility] Additional notes: PATIENT WOULD LIKE AN ORDER FOR A MAMMOGRAM. SHE STATES THAT WHEN SHOWERING A FEWDAYS AGO, SHE FELT A DIFFERENCE IN TEXTURE/FIRMNESS BETWEEN HER BREASTS. IT HAS BEEN A FEW YEARS SINCE SHE HAS HAD A MAMMOGRAM. PLEASE CALL PATIENT WHEN THIS ORDER IS ENTERED. documented in this encounter Plan of Treatment Upcoming Encounters Date Type Department Care Team (Late st Contact Info) Description 10/09/2025 9:45 AM EST Office Visit [facility] [address] [place] [address] Chapin Lan MD [address] [place] [address] 05/15/2026 10:15 AM EDT Office Visit [facility] [address] [place] [phone] Chapin Lan MD [address] [address] documented as of this encounter Visit Diagnoses Not on filedocumented in this encounter Care Teams Supervisor Wrapping Room Relationship Specialty Start Date End Date Chapin Lan MD [address] [place] [address] PCP - General Family Medicine 6/10/22 documented as of this encounter
--- OUTSIDE RECORDS SUMMARY | 2025-09-08 09:40 | XMS_ITS | Encounter Summary ---
Author Organization [facility] Address [address] [place] [address] Care Team Providers Care Family Development Extension Specialist Name Role Phone Chapin Lan MD Primary Care Provider + Encounter Details Date Type Department Care Team (Latest Contact Info) Description 08/11/2025 Travel Social History Tobacco Use Types Packs/Day Years [...] on file documented as of this encounter Plan of Treatment Upcoming Encounters Date Type Department Care Team (Late st Contact Info) Description 10/09/2025 9:45 AM EST Office Visit [facility] MEDICINE [address] [place] [address] Chapin Lan MD [address] [place] [address] 05/15/2026 10:15 AM EDT Office Visit [facility] MEDICINE [address] [place] [address] Chapin Lan MD [address] [place] [address] documented as of this encounter Visit Diagnoses Not on filedocumented in this encounter Care Teams Family Development Extension Specialist Relationship Specialty Start Date End Date Chapin Lan MD [address] [place] [address] PCP - General Family Medicine 04/25/22 documented as of this encounter
--- OUTSIDE RECORDS SUMMARY | 2025-09-08 09:40 | XMS_ITS | Encounter Summary ---
Author Organization [facility] Address [address] [place] [address] Care Team Providers Care Event Decorator And Designer Name Role Phone Chapin Lan MD Primary Care Provider + Reason for Visit * Reason Comments Med Refill Encounter Details Date Type Department Care Team (Late st Contact Info) Description 07/25/2025 Refill [facility] [address] [place] [address] Chapin Lan MD [address] [place] [address] Social History Tobacco Use Types Packs/Day Years [...] Description 10/09/2025 9:45 AM EST Office Visit [facility] [address] [place] [address] Chapin Lan MD [address] [place] [address] 05/15/2026 10:15 AM EDT Office Visit [facility] [address] [place] [phone] Chapin Lan MD [address] [place] [address] documented as of this encounter Visit Diagnoses Not on filedocumented in this encounter Care Teams Event Decorator And Designer Relationship Specialty Start Date End Date Chapin Lan MD [address] [place] [address] PCP - General Family Medicine 04/25/22 documented as of this encounter
--- OUTSIDE RECORDS SUMMARY | 2025-09-08 09:40 | XMS_ITS | Encounter Summary ---
Author Organization [facility] Address [address] [place] [address] Care Team Providers Care Surface To Air Weapons Officer Name Role Phone Chapin Lan MD Primary Care Provider + Encounter Details Date Type Department Care Team (Latest Contact Info) Description 08/24/2025 Travel Social History Tobacco Use Types Packs/Day [...] Description 10/09/2025 9:45 AM EST Office Visit [facility] MEDICINE [address] [place] [address] Chapin Lan MD [address] [place] [address] 05/15/2026 10:15 AM EDT Office Visit [facility] MED[facility]INE [address] [place] [address] Chapin Lan MD [address] [place] [address] documented as of this encounter Visit Diagnoses Not on filedocumented in this encounter Care Teams Surface To Air Weapons Officer Relationship Specialty Start Date End Date Chapin Lan MD [address] [place] [address] PCP - General Family Medicine 04/25/22 documented as of this encounter
--- OUTSIDE RECORDS SUMMARY | 2025-09-08 09:41 | XMS_ITS | Clinical Summary ---
Author Organization [facility] Address [address] [id number] Care Team Providers Care Cleaner Housekeeping Name Role Phone Panchito Curiel MD Primary Care Provider [phone] Allergies Active Allergy Reactions Criticality Noted Date Comments Diltiazem Other - please docum ent in the comment field Low 02/21/2024 Flushed in face and prickling sensation Medications ibuprofen 400 MG tablet Take 1 tablet (400 mg) by mouth every 6 (six) hours if needed for mild pain. 40 tablet 4 Active traMADol (Ultram) 50 MG tablet Take 1 tablet (50 mg) by mouth every 6 (six) hours if needed for severe pain. 4 tablet 4 Active lisinopril-hydroCHL OROthiazide 10-12.5 MG tablet Take 1 tablet by mouth 1 (one) time each day. Active metoprolol succinate XL (Toprol-XL) 25 MG 24 hr tablet Take 1 tablet (25 mg) by mouth 1 (one) time each day. Do not crush or chew. Active ondansetron ODT (Zofran-ODT) 4 MG disintegrating tablet Take 1 tablet (4 mg) by mouth every 8 (eight) hours if needed for nausea or vomiting. Active aspirin 81 MG EC tablet Take 1 tablet (81 mg) by mouth 1 (one) time each day. Active acetaminophen (Tylenol) 500 MG tablet Take 2 tablets (1,000 mg) by mouth every 6 (six) hours if needed (back pain). Active Active Problems Problem Noted Date Diagnosed Date RUQ abdominal pain 02/19/2024 Family History Medical History Relation Name Comments Heart disease Father Hypertension Father Diabetes Mother Relation Name Status Comments Father Mother Social History Tobacco Use Types Packs/Day Years Used Date Smoking Tobacco: Never Passive Smoke Exposure: Never Smokeless Tobacco: Never Tobacco Cessation:Counseling Given: No Alcohol Use Standard Drinks/Week Comments Not Asked 0 (1 standard drink = 0.6 oz pur e alcohol) CAGE ASSESSMENT Answer Date Recorded Cage unable to access Not on file 02/20/2024 Cage max number of drinks Not on file 2023 Cage Beverages a week Not on file 02/20/2024 Have you ever felt you should CUT down on your d rinking? 0 02/20/2024 Have you been ANNOYED by people criticizing your drinking? 0 02/20/2024 Have you felt GUILTY about your drinking? 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 0 02/20/2024 CAGE Questionnaire Score 0 024 Comments No Sex and Gender Information Value Date Recorded Sex Assigned at Female 02/20/2024 8:51 AM EDT Legal Sex Female 6:50 PM EDT Gender Identity Female 02/20/2024 8:51 AM EDT Sexual Orientation Not on file Last Filed Vital Signs Vital Sign Reading Time Taken Comments Blood Pressure 107/69 02/21/2024 12:13 PM EDT Pulse 72 02/21/2024 12:13 PM EDT Temperature 36.6 C (97.9 F) 02/21/2024 12:13 PM EDT Respiratory Rate 17 02/21/2024 12:13 PM EDT Oxygen Saturation 96% 02/21/2024 12:13 PM EDT Inhaled Oxygen Concentration - - Weight 92 kg (202 lb 13.2 oz) 02/20/2024 4:15 AM EDT Height 162.6 cm (5' 4 ) 02/20/2024 4:15 AM EDT Body Mass Index 34.81 02/20/2024 4:15 AM EDT Plan of Treatment Health Maintenance Due Date Last Done Comments [facility]-Depression Screening 1962 [facility]-Infant/Child/Adol SDOH Screenings 1962 [facility]- SDOH Screenings 1980 [facility]-Adult SDOH Screenings 1980 [facility]-DTaP,Tdap,and Td Vaccines (1 - Tdap) 1981 [facility]-Pap Smear 1983 [facility]-Cervical Cancer Screening 1992 [facility]-HPV/Cotest 1992 CT Colonography 2007 Colonoscopy 2007 FIT-DNA 2007 FIT 2007 FOBT 2007 Sigmoidoscopy 2007 [facility]-Colorectal Cancer Screening 2007 [facility]-Pneumococcal Vaccine: 50+ Years (1 of 1 - PCV) 2012 [facility]-Zoster Vaccines (1 of 2) 2012 [id number] Vaccine ( season) 2025 04/21/2022, 10/23/2021, 03/07/2021, Additional history exists [facility]-Influenza Vaccine (#1) 2025 [facility]-Breast Cancer Screening 09/03/2025 09/03/2023, 1 [facility]-RSV Vaccine: 60+ Years or (1 - 1-dose 75+ series) 2037 [facility]-HIV Screening Completed 02/19/2024 [facility]-Hepatitis C Screening Completed 02/19/2024 [facility]-Obesity Intervention Completed 024, 02/19/2024, 02/19/2024 HPV Vaccines Aged Out No longer eligi ble based on patient's age to complete this topic [facility]-HIB Vaccines Aged Out No longer e ligible based on patient's age to complete this topic [facility]-Hepatitis A Vaccines Aged Out No longer eligible based on patient's age to complete this topic [facility]-IPV Vaccines Aged Out No longer e ligible based on patient's age to complete this topic [facility]-Rotavirus Vaccines Aged Out No lo nger eligible based on patient's age to complete this topic Procedures Procedure Name Priority Date/Time Associated Diagnosis Comments HEPATITIS C ANTIBODY - ED W/REFLEX TO HCV QUANT PCR STAT 02/19/2024 6:07 PM EDT ED HIV 1/2 ANTIBODY/ANTIGEN SCREEN WITH REFLEX TO HIV I/II DIFFERENTIATION STAT 02/19/2024 6:07 PM EDT from Last 3 Months or Most Recently Relevant to Health Maintenance Results * ED HIV 1/2 Antibody/Antigen Screen w/Reflex to HIV 1/2 Differentiation (02/19/2024 6:07 PM EDT) Pathologist [facility] HIV 1 & 2 Antibody/Antigen Screen Non Reactive Non Reactive 02/19/2024 7:03 PM EDT [facility] Comment:Screening for HIV 1 & 2 antibodies, and P24 antigen is NONREACTIVE. No confirmatory testing is required. Blood Venous blood specimen / Unknown Venipuncture / Unknown 02/19/2024 6:07 PM EDT 02/19/2024 6:17 PM EDT Kendra France MD LAB BLOOD ORDERABLES Final R esult Performing Organization Address [facility] Co de Phone Number [facility] [address] [place] [address] * Hepatitis C Antibody - ED (02/19/2024 6:07 PM EDT) [facility] Hepatitis C Antibody Negative Negative 02/19/2024 7:03 PM EDT [facility] Blood Venous blood specimen / Unknown Venipuncture / Unknown 02/19/2024 6:07 PM EDT 02/19/2024 6:18 PM EDT Kendra France MD LAB BLOOD ORDERABLES Final R esult Performing Organization Address [facility] Co de Phone Number [facility] [address] [place] [address] from Last 3 Months or Most Recently Relevant to Health Maintenance Insurance [employer] Advance Directives * Full Code (Latest Code Status on File) Date Activated Date Inactivated Comments 02/20/2024 12:10 PM 02/21/2024 3:07 PM Question Answer Comments Patient has decision-making capacity? Yes Care Teams Cleaner Housekeeping Relationship Specialty Start Date End Date Panchito Curiel MD [address] [facility] [place] [id number] PCP - General 03/29/21
--- OUTSIDE RECORDS SUMMARY | 2025-09-08 09:41 | XMS_ITS | Encounter Summary ---
Author Organization [facility] Address [address] [place] [address] Care Team Providers Care Skate Boarder Name Role Phone Chapin Lan MD Primary Care Provider + Encounter Details Date Type Department Care Team (Late Contact Info) Description 05/12/2025 Results Follow-Up [facility] [address] [facility] [place] [place] [address] Chapin Lan MD [address] [place] [address] Social History Tobacco Use Types [...] Encounters Date Type Department Care Team (Late Contact Info) Description 10/09/2025 9:45 AM EST Office Visit [facility] [address] [place] [address] Chapin Lan MD [address] [place] [address] 05/15/2026 10:15 AM EDT Office Visit [facility] [address] [place] [phone] Chapin Lan MD [address] [place] [address] documented as of this encounter Visit Diagnoses Not on filedocumented in this encounter Care Teams Skate Boarder Relationship Specialty Start Date End Date Chapin Lan MD [address] [place] [address] PCP - General Family Medicine 04/25/22 documented as of this encounter
== END 2025-09-08 23:59 | disposition home or self-care (01) ==
LOC: RAD 09:38
PROVIDERS: PCP Family Medicine; Visit Provider Family Medicine
DX: Z12.31 Encounter for screening mammogram for malignant neoplasm of breast (principal)
CPT/HCPCS: 77063; 77067